=== PATIENT | male | born 1980 | race Caucasian/White ===

== ENCOUNTER → 2021-03-23 14:40 | Outpatient (BNVA) | payer BC, SELFPAY | PROVIDERS: PCP Physician Assistant; Visit Provider Internal Medicine | DX: Z01.810 Encounter for preprocedural cardiovascular examination (principal); I48.0 Paroxysmal atrial fibrillation; I10 Essential (primary) hypertension; G47.33 Obstructive sleep apnea (adult) (pediatric); Z51.81 Encounter for therapeutic drug level monitoring; Z79.899 Other long term (current) drug therapy; Z99.89 Dependence on other enabling machines and devices | CPT/HCPCS: 93005 ==

== ENCOUNTER → 2021-11-10 12:57 | Outpatient (BNVA) | payer BC, SELFPAY | PROVIDERS: PCP Internal Medicine; Visit Provider Physician Assistant ==

== ENCOUNTER → 2021-11-11 07:34 | Outpatient (BNVA) | payer BC, SELFPAY | PROVIDERS: PCP Internal Medicine; Visit Provider Surgery ==

== ENCOUNTER 2021-11-16 15:39 | Outpatient (REF) | payer BC, SELFPAY ==
--- NOTE | ~2021-11-16 | XR_ITS ---
EXAMINATION: XR CHEST CLINICAL INFORMATION: Paroxysmal atrial fibrillation COMPARISON: Previous chest x-ray most recent May 2019 TECHNIQUE: 2 views of the chest were obtained. FINDINGS: No significant abnormality is noted involving the heart, lungs, mediastinum, bony thorax or soft tissues. XR/XR chest 2V IMPRESSION: Unremarkable examination.
[2021-11-18 13:00] LABS: H Pylori Breath Test Negative (Negative)
== END 2021-11-16 15:40 | disposition home or self-care (01) ==
LOC: HO.XRAY 15:39
PROVIDERS: Absent Provider Surgery; PCP Internal Medicine; Visit Provider Physician Assistant Surgical
DX: E66.01 Morbid (severe) obesity due to excess calories (principal); E78.5 Hyperlipidemia, unspecified; G47.33 Obstructive sleep apnea (adult) (pediatric); I10 Essential (primary) hypertension; I48.0 Paroxysmal atrial fibrillation; Z99.89 Dependence on other enabling machines and devices
CPT/HCPCS: 36415; 71046; 83013

== ENCOUNTER → 2021-12-07 08:17 | Outpatient (BNVA) | payer BC, SELFPAY | PROVIDERS: PCP Internal Medicine; Visit Provider Surgery ==

== ENCOUNTER → 2021-12-14 08:33 | Outpatient (BNVA) | payer BC, SELFPAY | PROVIDERS: PCP Internal Medicine; Visit Provider Dietitian, Registered | DX: E66.01 Morbid (severe) obesity due to excess calories (principal) | CPT/HCPCS: 97802 ==

== ENCOUNTER 2021-12-22 08:21 | Outpatient (REF) | payer BC, SELFPAY ==
--- NOTE | ~2021-12-22 | US_ITS ---
EXAMINATION: US COMPLETE ABDOMEN WITH LIVER ELASTOGRAPHY CLINICAL INFORMATION: Paroxysmal atrial fibrillation. COMPARISON: None. TECHNIQUE: Real-time imaging of the abdominal viscera. Noninvasive ultrasound liver fibrosis assessment is performed using Dorina ElastPQ point quantification shear wave elastography (2D-SWE) with a C5-2 MHz transducer. Multiple elastography samples are obtained. FINDINGS: PANCREAS: The visualized pancreatic head and body are normal in appearance. The remainder of the pancreas is obscured from visualization by the overlying bowel gas. ABDOMINAL AORTA: The proximal, middle, and distal aortic segments are normal in caliber. INFERIOR VENA CAVA: Visualized portions are normal. LIVER: Normal. The liver demonstrates normal size, contour and echogenicity. No focal lesion or intrahepatic biliary duct dilatation. The right lobe measures 18.0 cm in length. The left lobe measures 10.4 cm in length. Portal flow is hepatopedal. Shear wave liver elastography median stiffness is 1.97 m/s (reference: normal median stiffness is 1.3 m/s or less). IQR/median stiffness to assess sampling precision is 0.19 (reference: good quality data set is IQR/median stiffness of 0.15 or less). GALLBLADDER: Normal. The gallbladder is physiologically distended without evidence of stones, sludge, polyps, wall thickening or pericholecystic fluid. COMMON BILE DUCT: Normal in caliber measuring 0.5 cm in diameter. RIGHT KIDNEY: Normal. No hydronephrosis. No renal calculi or focal parenchymal lesions. The kidney measures 12.3 cm in maximum dimension. LEFT KIDNEY: Normal. No hydronephrosis. No renal calculi or focal parenchymal lesions. The kidney measures 12.0 cm in maximum dimension. SPLEEN: Normal. The spleen measures 13.5 cm in maximum dimension. FREE FLUID: None. US/US abdomen comp w elastography IMPRESSION: 1. Mild hepatomegaly. 2. Borderline size spleen. 3. Rest of the abdominal ultrasound is unremarkable. 4. Liver elastography: Median liver stiffness 1.97 m/s corresponding to cACLD, (suggestive). REFERENCE: Society of Radiologists in Ultrasound Liver Stiffness Thresholds (2019): LIVER STIFFNESS THRESHOLDS: *Liver Stiffness equal or less than 1.3 m/s: High probability of being normal. *Liver Stiffness less than 1.7 m/s: In the absence of other known clinical signs, rules out compensated advanced chronic liver disease. *Liver Stiffness 1.7-2.1 m/s: Suggestive of compensated advanced chronic liver disease but need further test for confirmation. *Liver Stiffness over 2.1 m/s: Rules in compensated advanced chronic liver disease. *Liver Stiffness over 2.4 m/s: Suggestive of clinically significant portal hypertension. QUALITY OF DATA SET: *IQR/Median value equal or less than 0.15 implies a quality data set. *IQR/Median value over 0.15 implies a poor quality data set. SIGNIFICANT CHANGE FROM PRIOR EXAM: Significant change if liver stiffness measurement is 10% or greater from prior exam. OTHER CONSIDERATIONS: The stage of liver fibrosis may be overestimated in the setting of acute hepatitis, liver inflammation, elevated liver function tests, hepatic vascular congestion, obstructive cholestasis, non-fasting state, and infiltrative diseases such as amyloidosis and lymphoma. In some patients with NAFLD, the liver stiffness thresholds for compensated advanced chronic liver disease may be lower. In causes other than viral hepatitis and NAFLD, liver stiffness thresholds are not well established.
--- NOTE | ~2021-12-22 | FL_ITS ---
EXAMINATION: XR FLUOROSCOPY UPPER GI WITH AIR CLINICAL INFORMATION: Preoperative COMPARISON: None TECHNIQUE: Air-contrast upper GI examination FINDINGS: There is normal apposition of the focal cords while saying E. There is normal elevation of the soft palate while saying candy. Patient swallowed thin and thick barium and half-inch diameter barium tablet without difficulty. No persistent strictures identified. There is normal motility seen. No hiatal hernia. No gastroesophageal reflux was elicited including with water siphon test. No mucosal abnormality appreciated. The stomach demonstrated normal distensibility without abnormal mass or ulceration. There was no delay in gastric emptying. The duodenal bulb and sweep appeared unremarkable. FLUOROSCOPY TIME: 1.4 minutes DOSE AREA PRODUCT: 20.474 Gy-cm2 (john-centimeter squared) FL/FL upper GI w air IMPRESSION: Normal air-contrast upper GI examination.
== END 2021-12-22 08:22 | disposition home or self-care (01) ==
LOC: HO.US 08:21
PROVIDERS: Visit Provider Surgery
DX: Z01.818 Encounter for other preprocedural examination (principal); I48.0 Paroxysmal atrial fibrillation; I10 Essential (primary) hypertension; E66.01 Morbid (severe) obesity due to excess calories; E78.5 Hyperlipidemia, unspecified; G47.33 Obstructive sleep apnea (adult) (pediatric); Z99.89 Dependence on other enabling machines and devices
CPT/HCPCS: 74246; 76705; 76981

== ENCOUNTER 2021-12-29 08:00 | Outpatient (REF) | payer BC, SELFPAY ==
--- NOTE | 2021-12-29 08:41 | ECG_ITS ---
Test Reason : I48.0 Blood Pressure : / mmHG Vent. Rate : 064 BPM Atrial Rate : 064 BPM P-R Int : 166 ms QRS Dur : 104 ms QT Int : 392 ms P-R-T Axes : 072 056 029 degrees QTc Int : 404 ms Normal sinus rhythm Normal ECG When compared with ECG of 16-SEP-2018 09:32, No significant change was found Referred By: Jose G Melgar Electronically Signed By:RACHEAL MUNOZ
[2021-12-29 09:34] LABS: Basophils Percent Auto 0.4 % (0-2); Eosinophils Absolute Auto 0.3 X10*3/uL (0.0-0.4); Eosinophils Percent Auto 3.7 % (0-4); Hematocrit 45.2 % (42.0-52.0); Imm Gran Abs Auto 0.02 X10*3/uL (0.00-0.03); Imm Gran Pct Auto 0.3 % (0.0-0.4); Lymphocytes Absolute Auto 1.6 X10*3/uL (1.2-4.9); Lymphocytes Percent Auto 22.4 % (20-40); MANUAL DIFF FLAG SCAN; Mean Corpuscular HGB Conc 33.2 g/dl (31.0-36.0); Mean Corpuscular Hemoglobin 27.5 pg (27.0-33.0); Mean Corpuscular Volume 82.9 fL (80.0-98.0); Monocytes Absolute Auto 0.4 X10*3/uL (0.1-1.2); Monocytes Percent Auto 5.8 % (2-11); Neutrophils Absolute Auto 4.7 x10*3/uL (2.0-8.3); Neutrophils Percent Auto 67.4 % (45-73); PLT CLUMP 1; Red Blood Count 5.45 X10*6/uL (4.60-5.80); Red Cell Distribution Width 12.7 % (11.0-16.0); SCAN SMEAR FLAG 1
[2021-12-29 09:56] LABS: Alanine Aminotransferase 18 U/L (0-40); Albumin Level 4.4 g/dL (3.5-5.0); Alkaline Phosphatase 82 U/L (39-117); Anion Gap 11 (12-20); Aspartate Amino Transferase 21 U/L (5-37); Bilirubin Total 0.5 mg/dL (0.0-1.0); Blood Urea Nitrogen 14 mg/dL (9-16); C Reactive Protein 0.48 mg/dL (< or = 0.50); Calcium 9.6 mg/dL (8.4-10.2); Carbon Dioxide 28 mmol/L (22-29); Chloride 105 mmol/L (96-108); Cholesterol 219 mg/dL; Estimated Glomerular Filt Rate > 60; Glucose Random 99 mg/dL (60-115); HDL Cholesterol 39 mg/dL; Iron 60 mcg/dL (45-160); LDL Cholesterol Calculated 156 mg/dl; Platelet Count 155 X10*3/uL (160-400); Potassium 4.4 mmol/L (3.3-5.1); Sodium 140 mmol/L (135-145); Total Protein 7.1 g/dL (6.5-8.0); Triglycerides 120 mg/dL
[2021-12-29 09:57] LABS: SLIDE REVIEW VERIFIED
[2021-12-29 10:04] LABS: Estimated Average Glucose 108 mg/dL; Hemoglobin A1c % 5.4 %
[2021-12-29 10:08] LABS: Percent Iron Saturation 15 % (15-50); Total Iron Binding Capacity 393 mcg/dL (228-428); Unsaturated Iron Binding 333 ug/dL
[2021-12-29 10:20] LABS: Ferritin 107 ng/mL (20-250); Insulin 26 uU/mL (2-29); TSH reflex Free T4 2.07 uIU/mL (0.32-4.0); Vitamin D 25-OH Total 25.5 ng/mL (>30)
[2021-12-29 10:27] LABS: Folate 13.3 ng/mL (> or = 4.0); Vitamin B12 506 pg/mL (200-900)
[2021-12-30 17:16] LABS: Calcium (PTHI) 9.5 mg/dL (8.6-10.3); PTHI 27 pg/mL (14-64)
[2022-01-02 14:42] LABS: Zinc 77 mcg/dL (60-130)
[2022-01-03 17:21] LABS: Vitamin B1 7 nmol/L (8-30)
[2022-01-04 17:26] LABS: Vitamin A 41 mcg/dL (38-98)
== END 2021-12-29 08:01 | disposition home or self-care (01) ==
LOC: HO.LAB 08:00
PROVIDERS: PCP Internal Medicine; Visit Provider Surgery
DX: E66.01 Morbid (severe) obesity due to excess calories (principal); G47.33 Obstructive sleep apnea (adult) (pediatric); E78.5 Hyperlipidemia, unspecified; I10 Essential (primary) hypertension; I48.0 Paroxysmal atrial fibrillation; Z99.89 Dependence on other enabling machines and devices
CPT/HCPCS: 36415; 80053; 80061; 82306; 82607; 82728; 82746; 83036; 83525; 83540; 83970; 84425; 84443; 84590; 84630; 85025; 86140; 93005

== ENCOUNTER → 2022-01-11 08:18 | Outpatient (BNVA) | payer BC, SELFPAY | PROVIDERS: PCP Internal Medicine; Visit Provider Surgery ==

== ENCOUNTER → 2022-02-08 08:17 | Outpatient (BNVA) | payer BC, SELFPAY | PROVIDERS: PCP Internal Medicine; Visit Provider Surgery | DX: Z13.89 Encounter for screening for other disorder (principal) ==

== ENCOUNTER 2022-02-16 07:53 | Outpatient (REF) | payer BC, SELFPAY | END 2022-02-16 07:54 | disposition home or self-care (01) | LOC: HO.LAB 07:53 | PROVIDERS: PCP Internal Medicine; Visit Provider Surgery | DX: Z13.89 Encounter for screening for other disorder (principal) ==

== ENCOUNTER 2022-02-23 06:45 | Inpatient (IN) | payer BC, SELFPAY ==
[2022-02-15 10:01] VITALS: BMI 39.4
[2022-02-16 09:30] LABS: MANUAL DIFF FLAG NO
[2022-02-16 10:18] LABS: Hematocrit 44.4 % (42.0-52.0); Hemoglobin 14.8 g/dl (14.0-18.0); Imm Gran Pct Auto 0.3 % (0.0-0.4); Mean Corpuscular HGB Conc 33.3 g/dl (31.0-36.0); Mean Corpuscular Hemoglobin 27.2 pg (27.0-33.0); Mean Corpuscular Volume 81.6 fL (80.0-98.0); Mean Platelet Volume 10.3 fL (9.4-12.4); Neutrophils Percent Auto 67.7 % (45-73); Platelet Count 272 X10*3/uL (160-400); Red Blood Count 5.44 X10*6/uL (4.60-5.80); Red Cell Distribution Width 12.9 % (11.0-16.0); White Blood Count 7.9 X10*3/uL (4.8-10.8)
[2022-02-16 10:19] LABS: Basophils Percent Auto 0.5 % (0-2); Eosinophils Absolute Auto 0.2 X10*3/uL (0.0-0.4); Eosinophils Percent Auto 2.4 % (0-4); Imm Gran Abs Auto 0.02 X10*3/uL (0.00-0.03); Lymphocytes Absolute Auto 1.9 X10*3/uL (1.2-4.9); Lymphocytes Percent Auto 23.4 % (20-40); Monocytes Absolute Auto 0.5 X10*3/uL (0.1-1.2); Monocytes Percent Auto 5.7 % (2-11); Neutrophils Absolute Auto 5.4 x10*3/uL (2.0-8.3)
[2022-02-16 10:22] LABS: INTERNATIONAL NORM RATIO 1.1 (0.9-1.1); Prothrombin Time 12.7 SEC (9.9-13.0)
[2022-02-16 10:28] LABS: Estimated Average Glucose 100 mg/dL; Hemoglobin A1c % 5.1 %
[2022-02-16 10:40] LABS: Alanine Aminotransferase 24 U/L (0-40); Albumin Level 4.7 g/dL (3.5-5.0); Alkaline Phosphatase 106 U/L (39-117); Anion Gap 14 (12-20); Aspartate Amino Transferase 23 U/L (5-37); Blood Urea Nitrogen 14 mg/dL (9-16); C Reactive Protein 0.75 mg/dL (< or = 0.50); Calcium 10.1 mg/dL (8.4-10.2); Carbon Dioxide 27 mmol/L (22-29); Chloride 103 mmol/L (96-108); Cholesterol 229 mg/dL; Creatinine Clr Calc Pharmacy 122.9; Estimated Glomerular Filt Rate > 60; Glucose Random 84 mg/dL (60-115); HDL Cholesterol 37 mg/dL; LDL Cholesterol Calculated 168 mg/dl; Potassium 4.2 mmol/L (3.3-5.1); Sodium 140 mmol/L (135-145); Total Protein 7.7 g/dL (6.5-8.0); Triglycerides 122 mg/dL
[2022-02-16 10:47] LABS: Bilirubin Total 0.6 mg/dL (0.0-1.0)
[2022-02-16 11:05] LABS: Insulin 14 uU/mL (2-29); TSH reflex Free T4 1.78 uIU/mL (0.32-4.0)
[2022-02-22 12:28] LABS: COVID-19 Test Negative (Negative); IDNOW Serial# 16C4AD1C
[2022-02-23] VITALS (23 sets, daily range): BP systolic 130–190; BP diastolic 78–119; PULSE 74–85; RESP 14–18; TEMP 36.1–37.3; O2SAT 94–100
[2022-02-23] MEDS: Lactated Ringers 1,000 ML 999 ML IV (06:47)
--- NOTE | 2022-02-23 07:24 | P.CONAN_ITS ---
[facility] Active Problems Active Problems: All Active Problems (Updated 02/15/22 @ 09:55 by Patricia Bridges RN) PAF (paroxysmal atrial fibrillation) (Acute) Encounter for monitoring flecainide therapy (Acute) Preoperative cardiovascular examination (Acute) Vitamin D deficiency (Acute) Vitamin B1 deficiency (Acute) Hyperlipidemia (Acute) Morbid obesity (Acute) LINCOLN on CPAP (Acute) Essential hypertension (Acute) Afib (Acute) Past Medical History Medical History Afib Asthma Essential hypertension History of cardioversion Hyperlipidemia Morbid obesity On beta silvia at home LINCOLN on CPAP Family History Family History Father Heart attack Diabetes Mother Foot drop Anxiety Depression Sister Obesity Sister Obesity Sister Depression Anxiety Sister Anxiety Depression Surgical History Surgical History History of back surgery History of reconstruction of anterior cruciate ligament tear History of Problems with Anesthesia: No Social History Social History Are you a primary foster care therapist to a significant other at home: No Do you presently have visiting nurse or other home services: No Alcohol intake: current Alcohol intake frequency: a few times a week Patient Tobacco Use Status: Never used Tobacco Use of substances other than those prescribed or required for medical reasons: No Have you been hit, kicked, punched, or otherwise hurt by someone within the past year? If so, by whom?: No Are you DNR?: No Advance Directives: No Advance Directives Information Provided: Yes (Mailed with Pre-op Instructions) Advance Directives on File: No Recently lost weight without trying: No How much weight loss: 24-33 pounds Eating poorly because of decreased appetite: No Nutrition screen score: 3 Nutrition Risks: No Nutritional Risk Poor oral hygiene: No (Bonded front tooth) Meds Allergies Allergy/AdvReac Type Severity Reaction Status Date / Time No Known Allergies Allergy Unknown N/A Verified 02/15/22 09:58 [NO KNOWN ALLERGIES] Active Medications: Current Medications Lactated Ringer's (Lr) 1,000 mls @ 999 mls/hr IV .Q1H1M ZEINA Stop: 02/23/22 07:45 Last Admin: 02/23/22 06:47 Dose: 999 mls/hr Documented by: Home Medications Medication Instructions Recorded Confirmed Last Taken Type albuterol sulfate 90 mcg/actuation INHALATION 03/23/21 02/08/22 Unknown History aerosol inhaler hydrochlorothiazide 25 mg tablet 25 mg PO DAILY 03/23/21 02/15/22 Unknown History lisinopril 5 mg tablet 5 mg PO DAILY 03/23/21 02/15/22 Unknown History Exam Exam Date and Time: February 23, 2022 0724 Height,Weight and Vital Signs: Height 6 ft 3 in Weight 143.335 kg Last Vital Signs Temp 98.2 F 02/23/22 06:21 Pulse 80 02/23/22 06:21 Resp 18 02/23/22 06:21 BP 130/90 H 02/23/22 06:21 Pulse Ox 97 02/23/22 06:21 Pertinent Lab Results Pertinent Lab Results: Laboratory Tests 02/16/22 02/16/22 02/16/22 09:22 09:28 09:28 WBC 7.9 RBC 5.44 Hgb 14.8 Hct 44.4 MCV 81.6 MCH 27.2 MCHC 33.3 RDW 12.9 Plt Count 272 D MPV 10.3 Immature Gran % (Auto) 0.3 Neut % (Auto) 67.7 Lymph % (Auto) 23.4 [place] % (Auto) 5.7 Eos % (Auto) 2.4 Baso % (Auto) 0.5 Lymph # (Auto) 1.9 [place] # (Auto) 0.5 Eos # (Auto) 0.2 Baso # (Auto) 0.0 Abs Immat Gran (auto) 0.02 Absolute Neuts (auto) 5.4 Absolute Nucleated RBC 0.000 Nucleated RBC % (auto) 0.0 PT 12.7 INR 1.1 APTT 40.0 H Sodium Potassium Chloride Carbon Dioxide Anion Gap BUN Creatinine Estim Creat Clear Calc Estimated GFR Random Glucose Estimat Average Glucose Hemoglobin A1c % Insulin Level Calcium Total Bilirubin AST ALT Alkaline Phosphatase C-Reactive Protein Total Protein Albumin Triglycerides Cholesterol LDL Cholesterol, Calc HDL Cholesterol TSH COVID-19 ([facility]) COVID-19 Clin Com Blood Type O Negative Antibody Screen NEGATIVE 02/16/22 02/16/22 02/22/22 09:28 09:28 12:05 WBC RBC Hgb Hct MCV MCH MCHC RDW Plt Count MPV Immature Gran % (Auto) Neut % (Auto) Lymph % (Auto) [place] % (Auto) Eos % (Auto) Baso % (Auto) Lymph # (Auto) [place] # (Auto) Eos # (Auto) Baso # (Auto) Abs Immat Gran (auto) Absolute Neuts (auto) Absolute Nucleated RBC Nucleated RBC % (auto) PT INR APTT Sodium 140 Potassium 4.2 Chloride 103 Carbon Dioxide 27 Anion Gap 14 BUN 14 Creatinine 1.22 Estim Creat Clear Calc 122.9 Estimated GFR > 60 Random Glucose 84 Estimat Average Glucose 100 Hemoglobin A1c % 5.1 Insulin Level 14 Calcium 10.1 Total Bilirubin 0.6 AST 23 ALT 24 Alkaline Phosphatase 106 D C-Reactive Protein 0.75 H Total Protein 7.7 Albumin 4.7 Triglycerides 122 Cholesterol 229 LDL Cholesterol, Calc 168 HDL Cholesterol 37 TSH 1.78 COVID-19 ([facility]) Negative COVID-19 Clin Com See Note Blood Type Antibody Screen Airway Mallampati Class: III TM Dist: >3cm Neck ROM: Full Loose/Missing/Broken Teeth: No Heart: RRR Lungs: CTA Assessment and Plan Assessment Anesthesia Assessment: Anesthesia Plan Discussed and Chart Reviewed Final Anesthetic Review History of Problems with Anesthesia: No NPO: Yes ASA Class: III Final Preanesthetic Review: Meds/Allgs Chart Reviewed, Consent Obtained/Reviewed and Anes Risks/Benef Reviewed Patient Risk: Intermediate Procedure Risk: Intermediate Anesthetic Plan Anesthetic Plan: GA Disposition: Standard PACU
--- NOTE | 2022-02-23 07:53 | PHA.MEDREC ---
Pharmacy Consult ? Medication Reconciliation RN has completed the medication reconciliation, pharmacy reviewed.
[2022-02-23] MEDS: HYDROmorphone HCl 0.5 MG/0.5 ML SYRINGE 0.25 MG IVPUSH ×4 (10:26→10:58)
--- NOTE | 2022-02-23 10:28 | PM.DS ---
DS: Providers Provider Date of Service: 02/24/22 Date of admission: 02/23/22 06:45 Primary care physician: Matt Bhagat DO, MD DS: Summary Hospital Course Hospital Course: ADMITTING DIAGNOSIS: morbid obesity, pAFIB, HTN, LINCOLN, hyperlipidemia DISCHARGE DIAGNOSIS: same, s/p laparoscopic sleeve gastrectomy PAST SURGICAL HISTORY: PROCEDURE: upper endoscopy, laparoscopic sleeve gastrectomy DISCHARGE SUMMARY: History of Present Illness: The patient is a 41 year-old woman with a BMI of 44 kg/m2 and associated co-morbidities as described above. The patient had extensive work-up,lost 37.8 lbs preoperatively and was electively scheduled for laparoscopic, possible open sleeve gastrectomy and gastropexy. Risks and complications of the surgery were discussed with the patient in advance, particularly the possibility of , pulmonary embolism, anastomotic leak, bleeding, bowel injury, GERD, cardiac, renal or pulmonary complications. The patient understood all the risks and was in agreement with the surgical plan. Hospital Course: The patient underwent an uneventful laparoscopic sleeve gastrectomy with gastropexy on the day of admission. Postoperatively, the patient was transferred to the surgical floor. The patient received IV Acetaminophen and IV dilaudid for pain control. Patient was started on bariatric phase 1 diet POD #0. On postoperative day one, the patient was feeling well without nausea, vomiting, fevers, or tachycardia. The patient had some mild incisional pain and the abdomen was soft. On the morning of postoperative day one, the patient was continued on 1 ounce of water or ice every half hour. During the day, the patient did fairly well, having some incisional pain, but able to ambulate adequately and to tolerate liquids well. Since the patient is doing well, we decided that the patient was ready to be discharged. The patient was given instructions to follow-up with me next week and to call my office for any fever over 101, persistent abdominal pain, nausea, vomiting, GERD, symptoms of DVT such as calf tenderness, or leg swelling, or pulmonary embolism such as chest pain or shortness of breath. The patient was also instructed to drink 40-60 ounces of liquids per day using the 1-ounce cups. The patient had been given prescriptions for Tylenol for pain, Zofran prn for nausea, and pantoprazole and carafate previously. The patient was encouraged to ambulate and use the incentive spirometer. The patient was allowed to shower, but no baths, and encouraged to stay active at home. All of these instructions were given to the patient personally. All questions were answered and the patient understood all instructions, the instructions were also given to the patient in print. Time Spent with Patient Time attestation: Total time spent providing and/or coordinating discharge services: Discharge coordination time: Less than 30 minutes Quality: Safe Use of Opioids Does Pt have an Active Cancer Diagnosis on the Problem List?: No Quality: Stroke Does the patient have a stroke diagnosis?: No Physical Exam Vital Signs: Vital Signs: Last Vital Signs Temp 98.2 F 02/23/22 06:21 Pulse 80 02/23/22 06:21 Resp 18 02/23/22 10:26 BP 130/90 H 02/23/22 06:21 Pulse Ox 97 02/23/22 06:21 BMI result Body Mass Index 39.4 DS: Data Data Completed and Pending Pending studies at discharge: Pending at discharge 02/23/22 09:31 Surgical [PTH] Routine Labs on day of discharge: Laboratory Results - last 24 hr 02/22/22 12:05 COVID-19 ([facility]) Negative COVID-19 Clin Com See Note Discharge Plan Discharge Anticipated Discharge Date/Time: 02/24/22 10:25 Patient Disposition: Home, Self-Care Discharge Diagnosis: s/p sleeve gastrectomy Referrals: Matt Bhagat DO, MD [Primary Care Provider] - 1 Week Discharge Medications: Continued metoprolol succinate 25 mg tablet extended release 24 hr 25 mg PO DAILY Qty: 30 3RF albuterol sulfate 90 mcg/actuation HFA aerosol inhaler 2 inh inhalation Q4H PRN (Reason: Shortness Of Breath) 0RF lisinopril 5 mg tablet 5 mg PO DAILY 0RF flecainide 100 mg tablet 100 mg PO Q12H 90 Days Qty: 180 3RF pantoprazole 40 mg tablet,delayed release (DR/EC) 40 mg PO DAILY Qty: 30 2RF sucralfate 100 mg/mL suspension 10 ml PO BID Qty: 400 2RF ondansetron HCl 4 mg tablet 4 mg PO Q12H Qty: 20 0RF Held hydrochlorothiazide 25 mg tablet 25 mg PO DAILY 0RF Hold Instructions: Discuss with Dr Melgar Discontinued cholecalciferol (vitamin D3) 125 mcg (5,000 unit) capsule 125 mcg PO DAILY Qty: 30 2RF thiamine HCl (vitamin B1) 100 mg tablet 100 mg PO DAILY Qty: 30 1RF polyethylene glycol 3350 [Miralax] 17 gram powder in packet 17 g PO DAILY Qty: 14 0RF Rx Instructions: Mix each packet with 8oz of water and do 7 packets on 02/21/22 and another 7 packets on 02/22/22 Discharge Orders: Discharge Order (Routine); Ordered 02/24/22 Ordered By: Jose G Melgar Diet: other Activity on Discharge: No heavy lifting Stand Alone Forms: Patient Portal Discharge page Care Plan Goals: weight loss Health Concerns: morbid obesity Plan of Treatment: No tub baths, sex or returning to work until discussed at first post op appointment. No exercise, alcohol, tobacco or illegal drug use. Continue to use incentive spirometer hourly while awake. Walk in home for 5- 10 minutes every 2 hours during the first week. Continue phase 1 diet today and start phase 2 diet tomorrow morning. Follow all instructions in the bariatric handbook and call with any questions. 1. Please call your doctor or come back to the emergency room should any new symptoms arise. 2. You will receive a courtesy call from [facility] 24-48 hours after discharge. 3. Activity: abstain from alcohol, practice limited stair climbing, no bending, no driving, no exercise, no illicit substances, no lifting, no sex, no tub bath, no work. 4. Diet: continue as discussed with Dr. Melgar. 5. Dressing Change/Wound Care: Do not change or remove surgical dressings unless they are wet or soiled. 6. Call your doctor if: - Your temperature exceeds 101.5 F - You experience excessive pain or swelling - You have an unexpected reaction to medication - You have excessive bleeding - You experience continued vomiting/nausea - Your incision begins to separate - Your incision shows signs of infection such as increased redness, swelling, excessive pain, heat, or drainage (light blood or clear fluid is normal) 7. General instructions: No lifting greater than 5 lbs for the next 4 weeks[address] driving within 24 hours of taking narcotic pain medications. If you do not move your bowels in the next 2 days, please take milk of magnesia over the counter. Please follow the post op diet and do not advance your diet until you are seen in the office in about 2 weeks. Please walk around your home every hour or two to prevent blood clots from forming in your legs. You do not need to wake from sleeping to walk. Please sleep in a bed or couch to prevent kinking at the hips and knees. Please take your incentive spirometer (your lung public affairs director) home with you and use it for the next few days to prevent pneumonias. You may shower, no hot tubs, baths or swimming pools. Please call the office with any questions or concerns such as increasing abdominal pain, fever, chills, shortness of breath, chest pain, leg pain or swelling, or redness or drainage from your incisions. Do not hesitate to contact the office with any questions at . The patient's medical history has been reviewed and they are considered low risk for post op DVT and therefore DVT prophylaxis is not considered necessary. Travel after surgery was reviewed. The patient has not disclosed any travel plans during the first 30 days after surgery and they have been advised that within the first 30 days after surgery any bus, plane, train or car travel over 2 hours in duration is contraindicated due to the possibility of developing blood clots from immobility. Any travel, needs to include periods of ambulation of 10 minutes in duration every 2 hours. The patient was instructed to discuss any plans for travel during this period with their bariatric surgeon. Assessment: stable, post op sleeve gastrectomy
[2022-02-23] MEDS: Metoclopramide HCl 10 MG/2 ML VIAL IVPUSH (10:35)
[2022-02-23] MEDS: Famotidine/PF 20 MG/2 ML VIAL IVPUSH ×2 (10:35→20:18)
[2022-02-23 11:32] LABS: Hematocrit 42.8 % (42.0-52.0); Hemoglobin 14.4 g/dl (14.0-18.0)
[2022-02-23] MEDS: ondansetron HCL 4 MG/2 ML VIAL IVPUSH ×2 (11:36→20:18)
[2022-02-23 11:41] LABS: Anion Gap 13 (12-20); Blood Urea Nitrogen 13 mg/dL (9-16); Calcium 9.5 mg/dL (8.4-10.2); Carbon Dioxide 26 mmol/L (22-29); Chloride 104 mmol/L (96-108); Creatinine Clr Calc Pharmacy 121.9; Estimated Glomerular Filt Rate > 60; Glucose Random 124 mg/dL (60-115); Potassium 4.9 mmol/L (3.3-5.1); Sodium 138 mmol/L (135-145)
--- NOTE | 2022-02-23 11:57 | PM.OP ---
Brief Operative Note Date of Service: 02/23/22 Procedure: INITIAL PATIENT BMI ON PRESENTATION AT OUR OFFICE: 44.1 kg/m2 LAST BMI BEFORE SURGERY:40 kg/2 COMORBIDITIES: sleep apnea on CPAP, hypertension, atrial fibrilation, asthma, hyperlipidemia, liver fibrosis ?The patient presented to the Weight Management Program with significant obesity that was negatively impacting the patient's comorbidities as listed above.? The program is a phased program with a special focus on preoperative medical weight management to promote substantial weight loss and prepare the patients for the second phase of the program: bariatric surgery. The patient participated in an intensive weekly lifestyle ?intervention and exercise program during which the patient ?has lost between the initial office visit and the last preoperative visit 40.6lbs, or 11.51% of initial actual body weight. It was deemed appropriate for the patient to now have bariatric surgery. In light of the current Covid-19 pandemic and the well documented strong association of obesity and increased risk of worse outcomes if infected with Covid-19 (REFERENCES:https://pubmed.ncbi.nlm.nih.gov/47934105/,?https://pubmed.ncbi.nlm.nih.gov/52297405/), any delay in undergoing bariatric surgery may lead to the patient's worsening health condition and increased?risk of more severe Covid-19 disease if infected. In addition a recent?study from [facility] published in [employer] on 10/31/2021 ([email or web address]:/[id number]) found that, among patients with obesity, substantial weight loss achieved with surgery was associated with improved outcomes of COVID-19 infection. The findings suggest that obesity can be a modifiable risk factor for the severity of COVID-19 infection. In addition, the patient met the BMI-criteria for bariatric surgery based on the BMI on initial presentation. The patient should not be penalized for achieving such weight loss because ?it is not sustainable long-term without surgical intervention and it was achieved in preparation for bariatric surgery ?under my direction and based on my published research ([email or web address]:/[email or web address]).pdf and?https://www.soard.org/article/[email or web address])05230-X/pdf) ?that a 10% preoperative weight loss improves long-term weight loss after surgery and reduces perioperative complications.? Insurance carriers such as [facility] have endorsed my recommendations ?and have included in their policies criteria to include a 10% preoperative weight loss requirement. PROCEDURE: Esophago-gastroscopy, laparoscopic lysis of adhesions, laparoscopic sleeve gastrectomy and laparoscopic gastropexy INDICATIONS: This is a 41 year-old male who was electively scheduled for laparoscopic, possibly open sleeve gastrectomy. The risks and complications of the procedure were discussed with the patient in advance, particularly the possibility of ; pulmonary embolism; staple line leak; bleeding; GERD; cardiac, pulmonary, or renal complications; as well as long-term problems such as insufficient weight loss, vitamin deficiency, strictures, or ulcers. The patient understood all the risks, and was in agreement to proceed with surgery. DESCRIPTION OF PROCEDURE: After informed consent was obtained from the patient, the patient was given preoperative antibiotics, and was transferred to the operating room. After successful induction of general anesthesia, pneumatic compression devices were placed on both lower extremities. An upper endoscopy was performed next. The oropharynx and esophagus appeared to be within normal limits. There was no diaphragmatic hernia present consistent with the findings of the preoperative upper GI. The stomach was entered. Then after all fluid and air were suctioned and the stomach was fully decompressed, the scope was withdrawn and secured in the mid esophagus. The patient was then prepped and draped in the usual sterile manner, and abdominal access was established at the right upper quadrant with the Samuel technique. A 12 mm blunt port was inserted, and the abdomen was insufflated with CO2 to a pressure of 15 mmHg. Under direct visualization, additional ports were placed, specifically two 5 mm Versi-step ports to the left upper quadrant, and a 5 mm Versi-Step port to the right upper quadrant. 1% lidocaine plain was used to infiltrate all port sites as well as all fascia defects. Using the EndoClose suture passer device, I placed a #1 Polysorb tie across the falciform ligament in order to retract it up against the abdominal wall and prevent injury of the ligament with our instruments during the procedure. Following that, the patient was placed in a steep reverse Trendelenburg position. An additional 5 mm port was placed to the right flank for the Mediflex retractor that was used to retract the left lobe of the liver. The gastro-esophageal fat pad was opened with the ultrasonic device (Thunderbeat, Olympus) and the anterior esophagus and hiatus were exposed. The angle of His was opened with the ultrasonic device the fundus of the stomach from any diaphragmatic and splenic attachments. I then opened the gastrocolic ligament between the transverse colon and the greater curvature of the stomach with the ultrasonic device to enter the lesser sac and facilitate the ligation of the short gastric vessels. I started at a mid-point along the greater curvature and using the Thunderbeat, all short gastric vessels were divided all the way to the angle of His until the left jania was completely dissected at its entirety. I then divided the gastro-colic ligament distally to a distance of about 3-4 cm proximal to the pylorus. There were extensive congenital adhesions between the pancreas and posterior gastric wall. Those were lysed completely with the ultrasonic device. Adhesiolysis took approximately 45 min to complete. The stomach was then divided transversely with one Endo KALA-45 purple, two KALA-45 orange loads and three KALA-60 articulating orange loads using the AEON stapler and loads. Every effort was made that the gastric sleeve had a tubular shape and an even caliber throughout. Once the sleeve resection was completed, the staple line of the gastric sleeve was reinforced with Hemoclips. The resected stomach was retrieved without difficulty from the Samuel port. A gastropexy was then performed in order to prevent postoperative GERD and partial gastric volvulus. Several interrupted 2.0 Surgidac sutures were placed between the sleeve's staple line and the previously divided greater omentum and gastro-colic ligament using the Endo-Stitch device. ?An upper endoscopy was performed. There was no narrowing at the GE junction. The scope was easily advanced all the way to the pylorus which was clearly visualized. There was no narrowing anywhere and the sleeve's caliber was even throughout. The sleeve's staple line was inspected and there was no evidence of ischemia, bleeding or dehiscence. At that point the gastroscope was withdrawn from the patient?s mouth while we were decompressing the bowel and the stomach from any remaining air. I looked into the lesser sac to see how the sleeve was situating and it was situating well. There was no bleeding from the staple line, spleen, or short gastric vessels. The Mediflex retractor was removed, and the undersurface of the liver was inspected and there was no bleeding. The patient was placed in supine position. I closed the fascial defect of the 12 mm port site with a figure of eight #1 Polysorb suture. Then 100 cc 0.25 % Marcaine plain with 10 mg of Dexamethasone were used to infiltrate the fascial closure as well as all skin incisions. At this point, the abdomen was deflated, all ports were removed under direct vision, and no bleeding was noted from any of the port sites. The skin incisions were irrigated with saline and were closed with 4-0 absorbable monofilament sutures. Steri-Strips and OpSites were used to cover all incisions. The patient was extubated and was transferred in stable condition to the recovery room for further care. I was present and performed all greer parts of the procedure. Ms. Rivera was the rn first assistant. There were no residents to assist with this case. Alessandro Melgar MD, PhD, FACS Surgeon: Jose G Melgar MD Anesthesia: GETA, local and other (TAP block) Was an Inside Trucker used for this Procedure?: No Inside Trucker: Anisha Rivera Estimated blood loss (mL): 10 IV fluids (mL): 3,000 Urine output (mL): 0 Pathology: other (Stomach) Condition: stable Disposition: PACU
--- NOTE | 2022-02-23 12:08 | PM.PNGS ---
Subjective Subjective Date of Service: 02/24/22 Interval history: Patient has mild incisional pain, but was able to ambulate and use the incentive spirometer. He is tolerating phase 1 bariatric diet Physical Exam Vital Signs: Vital Signs: Last Vital Signs Temp 99 F 02/23/22 11:50 Pulse 82 02/23/22 11:50 Resp 16 02/23/22 11:50 BP 167/94 H 02/23/22 11:50 Pulse Ox 98 02/23/22 11:50 BMI result Body Mass Index 39.4 GI: Inspection: Yes normal to inspection, Yes incision (clean, dry and intact) and Yes obesity Extrem: Right lower extremity: normal to inspection (no calf tenderness) Left lower extremity: normal to inspection (no calf tenderness) Objective Data Active Medications Albuterol Sulfate (Albuterol Sulfate (0.083%) 2.5 Mg/3 Ml Vial.Neb) 2.5 mg INHALE ONCE PRN PRN Reason: Wheezing Famotidine (Famotidine/Pf 20 Mg/2 Ml Vial) 20 mg IVPUSH BID ZEINA Last Admin: 02/23/22 10:35 Dose: 20 mg Documented by: HO.WARM Fentanyl (Fentanyl Citrate/Pf 100 Mcg/2 Ml Vial) 50 mcg IVPUSH Q5M PRN; Protocol PRN Reason: Pain, Severe (Pain Scale 7-10) Fentanyl (Fentanyl Citrate/Pf 100 Mcg/2 Ml Vial) 25 mcg IVPUSH Q5M PRN; Protocol PRN Reason: Pain, Moderate (Pain Scale 4-6 Metoclopramide HCl (Metoclopramide Hcl 10 Mg/2 Ml Vial) 10 mg IVPUSH Q6H PRN PRN Reason: Nausea Last Admin: 02/23/22 10:35 Dose: 10 mg Documented by: HO.WARM Labs CBC & Chem 7: 02/24/22 05:39 02/24/22 05:39 Labs: Laboratory Results - last 24 hr 02/22/22 02/23/22 12:05 11:03 Anion Gap 13 Estim Creat Clear Calc 121.9 Estimated GFR > 60 Random Glucose 124 H D Calcium 9.5 COVID-19 (TRAY) Negative COVID-19 Clin Com See Note Procedures Date of Service Date of Service: 02/24/22 Progress Note: A&P Assessment and plan (1) S/P laparoscopic sleeve gastrectomy: Status: Acute Assessment and Plan: s/p laparoscopic sleeve gastrectomy, lysis of adhesions repair of diaphragmatic hernia, and gastropexy Doing well Check am labs. If OK, will discharge home? (2) Morbid obesity: Status: Acute (3) LINCOLN on CPAP: Status: Acute (4) Hyperlipidemia: Status: Acute (5) Essential hypertension: Status: Acute (6) Afib: Status: Deleted (7) PAF (paroxysmal atrial fibrillation): Status: Acute (8) Congenital intra-abdominal adhesions: Status: Acute Fall Risk Details Current Medications: Current Medications Albuterol Sulfate (Albuterol Sulfate (0.083%) 2.5 Mg/3 Ml Vial.Neb) 2.5 mg INHALE ONCE PRN PRN Reason: Wheezing Famotidine (Famotidine/Pf 20 Mg/2 Ml Vial) 20 mg IVPUSH BID ZEINA Last Admin: 02/23/22 10:35 Dose: 20 mg Documented by: Fentanyl (Fentanyl Citrate/Pf 100 Mcg/2 Ml Vial) 50 mcg IVPUSH Q5M PRN; Protocol PRN Reason: Pain, Severe (Pain Scale 7-10) Fentanyl (Fentanyl Citrate/Pf 100 Mcg/2 Ml Vial) 25 mcg IVPUSH Q5M PRN; Protocol PRN Reason: Pain, Moderate (Pain Scale 4-6 Metoclopramide HCl (Metoclopramide Hcl 10 Mg/2 Ml Vial) 10 mg IVPUSH Q6H PRN PRN Reason: Nausea Last Admin: 02/23/22 10:35 Dose: 10 mg Documented by: Time Spent With Patient Time: Total time spent is greater than 50% in coordination of care (as documented) at patient's floor/unit and/or counseling patient: Quality Stroke Does the patient have a stroke diagnosis?: No VTE Prior VTE?: No VTE Risk Level:: Surgical - moderate VTE Device Contraindication: N/A - Device Ordered VTE Drug Contraindication: Treatment Not Indicated
[2022-02-23] MEDS: ceFAZolin Sodium/Dextrose,Iso 2 GM/50 ML PIGGYBACK IV (13:48)
[2022-02-23] MEDS: Metoprolol Succinate ER 25 MG TAB.ER.24H PO (13:49)
[2022-02-23] MEDS: Flecainide Acetate 50 MG TABLET 100 MG PO ×2 (13:51→20:18)
[2022-02-23] MEDS: lisinopriL 5 MG TABLET PO (15:40)
[2022-02-23] MEDS: 0.9 % Sodium Chloride Flush 3 ML SYRINGE IVFLUSH (20:19)
[2022-02-23] MEDS: Lactated Ringers 1,000 ML 100 ML IVCONT (20:33)
--- NOTE | 2022-02-23 22:13 | PC.NURSE ---
pt's middle abdominal dressing was saturated, reinforced with gauze and tegaderm.
[2022-02-24 03:27] VITALS: BP 138/67; PULSE 69; RESP 14; TEMP 36.7; O2SAT 95
[2022-02-24] MEDS: ondansetron HCL 4 MG/2 ML VIAL IVPUSH (05:43)
[2022-02-24] MEDS: Lactated Ringers 1,000 ML 100 ML IVCONT (05:43)
[2022-02-24 06:01] LABS: MANUAL DIFF FLAG NO
[2022-02-24 06:05] LABS: Basophils Percent Auto 0.1 % (0-2); Hemoglobin 13.6 g/dl (14.0-18.0); Imm Gran Abs Auto 0.06 X10*3/uL (0.00-0.03); Imm Gran Pct Auto 0.6 % (0.0-0.4); Lymphocytes Absolute Auto 1.2 X10*3/uL (1.2-4.9); Lymphocytes Percent Auto 11.4 % (20-40); Mean Corpuscular Hemoglobin 27.1 pg (27.0-33.0); Mean Corpuscular Volume 79.7 fL (80.0-98.0); Monocytes Absolute Auto 0.8 X10*3/uL (0.1-1.2); Monocytes Percent Auto 6.9 % (2-11); Neutrophils Absolute Auto 8.8 x10*3/uL (2.0-8.3); Platelet Count 244 X10*3/uL (160-400); Red Blood Count 5.02 X10*6/uL (4.60-5.80); Red Cell Distribution Width 12.9 % (11.0-16.0); White Blood Count 10.9 X10*3/uL (4.8-10.8)
[2022-02-24 06:38] LABS: Anion Gap 13 (12-20); Blood Urea Nitrogen 11 mg/dL (9-16); Calcium 9.3 mg/dL (8.4-10.2); Carbon Dioxide 24 mmol/L (22-29); Chloride 103 mmol/L (96-108); Estimated Glomerular Filt Rate > 60; Glucose Random 122 mg/dL (60-115); Sodium 136 mmol/L (135-145)
[2022-02-24 07:40] VITALS: O2SAT 98
[2022-02-24 08:00] VITALS: BP 152/89; PULSE 76; RESP 16; TEMP 36.1; O2SAT 97
[2022-02-24] MEDS: lisinopriL 5 MG TABLET PO (09:11)
[2022-02-24] MEDS: Flecainide Acetate 50 MG TABLET 100 MG PO (09:11)
[2022-02-24] MEDS: Famotidine/PF 20 MG/2 ML VIAL IVPUSH (09:11)
[2022-02-24] MEDS: Metoprolol Succinate ER 25 MG TAB.ER.24H PO (09:11)
--- NOTE | 2022-02-24 09:16 | MHC.CM.PN ---
PT REPORTS HE LIVES WITH HIS AND SON AND IS INDEPENDENT WITH CARE, WORKS AND DRIVES PT HAS A CPAP AND NO OTHER DME, HE HAS NO HOME SERVICES PT REPORTS HE AND HIS COMPLETED ADVANCED DIRECTIVES WITH AN CONSTRUCTION IRONWORKER WHEN HIS SON WAS BORN. COPY REQUESTED PCP: GARCÍA BLANCO PT REPORTS HE IS COVID-19 VACCINATED PT WILL DC HOME TODAY WITH NO SERVICES TO TRANSPORT
--- NOTE | 2022-02-24 11:10 | HO.POSTANES ---
Post Anesthesia Evaluation Post Anesthesia Evaluation Vital Signs: Vital Signs Temp Pulse Resp BP Pulse Ox 02/24/22 08:00 97.0 F 76 16 152/89 H 97 02/24/22 07:40 98 02/24/22 03:27 98.0 F 69 14 138/67 95 02/23/22 23:38 98.4 F 75 14 153/78 H 94 Anesthesia: General Endotracheal-GETA Mental Status: Awake Pain Control: Satisfactory Nausea/Vomiting: None Hydration: Adequate Anesthesia-Related Issues: No Anes. Related Issues
== END 2022-02-24 10:23 | disposition home or self-care (01) | DRG 403 ==
LOC: HO.SSSA 10:28 → HO.S3 12:35
PROVIDERS: Physician Assistant; Physician Assistant Surgical; Admitting Provider Surgery; PCP Internal Medicine; Visit Provider Surgery
PROC: 0DB64Z3 Excision of Stomach, Percutaneous Endoscopic Approach, Vertical (ICD-10-PCS; CPT 43845; principal; 2022-02-23 07:30)
DX: E66.01 Morbid (severe) obesity due to excess calories (principal); I48.91 Unspecified atrial fibrillation; K74.00 Hepatic fibrosis, unspecified; J45.909 Unspecified asthma, uncomplicated; K66.0 Peritoneal adhesions (postprocedural) (postinfection); E78.5 Hyperlipidemia, unspecified; I10 Essential (primary) hypertension; G47.33 Obstructive sleep apnea (adult) (pediatric); Z20.822 Contact with and (suspected) exposure to COVID-19; Z68.41 Body mass index [BMI] 40.0-44.9, adult; Z79.899 Other long term (current) drug therapy
CPT/HCPCS: 36415; 80048; 80053; 80061; 83036; 83525; 84443; 85014; 85018; 85025; 85610; 85730; 86140; 86850; 86900; 86901; 87635; 88307; 88342; 99024; A4649; C9399; J0131; J0690; J1100; J1170; J2250; J2405; J2550; J2765; J3010

== ENCOUNTER → 2022-02-28 14:03 | Outpatient (BNVA) | payer BC, SELFPAY | PROVIDERS: PCP Internal Medicine; Visit Provider Surgery | DX: Z13.89 Encounter for screening for other disorder (principal) ==

== ENCOUNTER → 2022-03-21 08:10 | Outpatient (BNVA) | payer BC, SELFPAY | PROVIDERS: PCP Internal Medicine; Visit Provider Dietitian, Registered | DX: E66.9 Obesity, unspecified (principal); Z68.36 Body mass index [BMI] 36.0-36.9, adult | CPT/HCPCS: 97803 ==

== ENCOUNTER → 2022-03-27 14:52 | Outpatient (BNVA) | payer BC, SELFPAY | PROVIDERS: PCP Internal Medicine; Visit Provider Internal Medicine | DX: I48.0 Paroxysmal atrial fibrillation (principal); I10 Essential (primary) hypertension; G47.33 Obstructive sleep apnea (adult) (pediatric); Z51.81 Encounter for therapeutic drug level monitoring; Z79.899 Other long term (current) drug therapy; Z99.89 Dependence on other enabling machines and devices | CPT/HCPCS: 93005 ==

== ENCOUNTER → 2022-04-04 11:53 | Outpatient (BNVA) | payer BC, SELFPAY | PROVIDERS: PCP Internal Medicine; Referring Provider Surgery; Visit Provider Dietitian, Registered | DX: E66.9 Obesity, unspecified (principal); Z68.35 Body mass index [BMI] 35.0-35.9, adult | CPT/HCPCS: 97803 ==

== ENCOUNTER → 2022-04-25 11:54 | Outpatient (BNVA) | payer BC, SELFPAY | PROVIDERS: PCP Internal Medicine; Referring Provider Surgery; Visit Provider Dietitian, Registered | DX: E66.9 Obesity, unspecified (principal); Z68.33 Body mass index [BMI] 33.0-33.9, adult | CPT/HCPCS: 97803 ==

== ENCOUNTER → 2022-05-25 16:06 | Outpatient (BNVA) | payer BC, SELFPAY | PROVIDERS: PCP Internal Medicine; Referring Provider Surgery; Visit Provider Dietitian, Registered | DX: E66.9 Obesity, unspecified (principal) | CPT/HCPCS: 97803 ==

== ENCOUNTER → 2022-06-28 16:00 | Outpatient (BNVA) | payer BC, SELFPAY | PROVIDERS: PCP Internal Medicine; Referring Provider Surgery; Visit Provider Dietitian, Registered | DX: E66.9 Obesity, unspecified (principal) | CPT/HCPCS: 97803 ==

== ENCOUNTER → 2022-07-26 16:19 | Outpatient (BNVA) | payer BC, SELFPAY | PROVIDERS: PCP Internal Medicine; Referring Provider Surgery; Visit Provider Dietitian, Registered | DX: E66.9 Obesity, unspecified (principal); Z68.31 Body mass index [BMI] 31.0-31.9, adult | CPT/HCPCS: 97803 ==

== ENCOUNTER 2022-08-12 07:09 | Outpatient (REF) | payer BC, SELFPAY ==
[2022-08-12 07:41] LABS: MANUAL DIFF FLAG NO
[2022-08-12 08:41] LABS: Basophils Percent Auto 0.6 % (0-2); Eosinophils Absolute Auto 0.3 X10*3/uL (0.0-0.4); Eosinophils Percent Auto 3.8 % (0-4); Hematocrit 44.2 % (42.0-52.0); Hemoglobin 14.7 g/dl (14.0-18.0); Imm Gran Abs Auto 0.02 X10*3/uL (0.00-0.03); Imm Gran Pct Auto 0.3 % (0.0-0.4); Lymphocytes Absolute Auto 1.9 X10*3/uL (1.2-4.9); Lymphocytes Percent Auto 29.4 % (20-40); Mean Corpuscular HGB Conc 33.3 g/dl (31.0-36.0); Mean Corpuscular Hemoglobin 27.9 pg (27.0-33.0); Mean Platelet Volume 10.8 fL (9.4-12.4); Monocytes Absolute Auto 0.4 X10*3/uL (0.1-1.2); Monocytes Percent Auto 6.4 % (2-11); Neutrophils Absolute Auto 3.9 x10*3/uL (2.0-8.3); Neutrophils Percent Auto 59.5 % (45-73); Platelet Count 230 X10*3/uL (160-400); Red Blood Count 5.26 X10*6/uL (4.60-5.80); Red Cell Distribution Width 12.8 % (11.0-16.0); White Blood Count 6.5 X10*3/uL (4.8-10.8)
[2022-08-12 09:19] LABS: Alanine Aminotransferase 18 U/L (0-40); Albumin Level 4.6 g/dL (3.5-5.0); Alkaline Phosphatase 107 U/L (39-117); Anion Gap 16 (12-20); Aspartate Amino Transferase 19 U/L (5-37); Bilirubin Total 0.7 mg/dL (0.0-1.0); Blood Urea Nitrogen 14 mg/dL (9-16); C Reactive Protein 0.08 mg/dL (< or = 0.50); Carbon Dioxide 26 mmol/L (22-29); Chloride 105 mmol/L (96-108); Cholesterol 175 mg/dL; Estimated Glomerular Filt Rate > 60; Glucose Random 92 mg/dL (60-115); HDL Cholesterol 53 mg/dL; Iron 131 mcg/dL (45-160); LDL Cholesterol Calculated 107 mg/dl; Percent Iron Saturation 32 % (15-50); Potassium 4.5 mmol/L (3.3-5.1); Sodium 142 mmol/L (135-145); Total Iron Binding Capacity 412 mcg/dL (228-428); Triglycerides 78 mg/dL; Unsaturated Iron Binding 281 ug/dL
[2022-08-12 09:20] LABS: Estimated Average Glucose 100 mg/dL; Hemoglobin A1c % 5.1 %
[2022-08-12 09:45] LABS: Ferritin 88 ng/mL (20-250); Insulin 7 uU/mL (2-29); TSH reflex Free T4 1.34 uIU/mL (0.32-4.0); Vitamin D 25-OH Total 44.4 ng/mL (>30)
[2022-08-12 09:48] LABS: Folate 10.8 ng/mL (> or = 4.0); Vitamin B12 683 pg/mL (200-900)
[2022-08-15 10:46] LABS: Calcium (PTHI) 9.9 mg/dL (8.6-10.3); PTHI 24 pg/mL (16-77)
[2022-08-16 13:02] LABS: Zinc 81 mcg/dL (60-130)
[2022-08-17 01:22] LABS: Vitamin A 49 mcg/dL (38-98)
[2022-08-17 14:07] LABS: Vitamin B1 18 nmol/L (8-30)
== END 2022-08-12 07:10 | disposition home or self-care (01) ==
LOC: HO.LAB 07:09
PROVIDERS: Visit Provider Physician Assistant Surgical
DX: Z98.84 Bariatric surgery status (principal)
CPT/HCPCS: 36415; 80053; 80061; 82306; 82607; 82728; 82746; 83036; 83525; 83540; 83970; 84425; 84443; 84590; 84630; 85025; 86140

== ENCOUNTER 2022-08-15 11:51 | Outpatient (REF) | payer BC, SELFPAY | END 2022-08-15 11:52 | disposition home or self-care (01) | LOC: HO.LAB 11:51 | PROVIDERS: Visit Provider Physician Assistant Surgical | DX: Z13.89 Encounter for screening for other disorder (principal) ==

== ENCOUNTER → 2022-10-02 15:02 | Outpatient (BNVA) | payer BC, SELFPAY | PROVIDERS: PCP Internal Medicine; Visit Provider Internal Medicine | DX: I48.0 Paroxysmal atrial fibrillation (principal); I10 Essential (primary) hypertension | CPT/HCPCS: 93005 ==

== ENCOUNTER → 2022-10-06 16:00 | Outpatient (BNVA) | payer BC, SELFPAY | PROVIDERS: PCP Internal Medicine; Visit Provider Dietitian, Registered | DX: E66.9 Obesity, unspecified (principal) | CPT/HCPCS: 97803 ==

== ENCOUNTER → 2022-11-24 16:17 | Outpatient (BNVA) | payer BC, SELFPAY | PROVIDERS: PCP Internal Medicine; Visit Provider Dietitian, Registered | DX: E66.9 Obesity, unspecified (principal) | CPT/HCPCS: 97803 ==

== ENCOUNTER → 2022-12-27 16:16 | Outpatient (BNVA) | payer BC, SELFPAY | PROVIDERS: PCP Internal Medicine; Visit Provider Dietitian, Registered | DX: E66.9 Obesity, unspecified (principal) | CPT/HCPCS: 97803 ==

== ENCOUNTER → 2023-03-22 14:48 | Outpatient (BNVA) | payer BC, SELFPAY | PROVIDERS: PCP Internal Medicine; Visit Provider Physician Assistant Surgical ==

== ENCOUNTER 2023-03-29 06:12 | Outpatient (REF) | payer BC, SELFPAY ==
[2023-03-29 11:12] LABS: MANUAL DIFF FLAG NO
[2023-03-29 11:37] LABS: Basophils Percent Auto 0.7 % (0-2); Eosinophils Absolute Auto 0.2 X10*3/uL (0.0-0.4); Hematocrit 44.3 % (42.0-52.0); Hemoglobin 15.1 g/dl (14.0-18.0); Imm Gran Abs Auto 0.01 X10*3/uL (0.00-0.03); Imm Gran Pct Auto 0.2 % (0.0-0.4); Lymphocytes Absolute Auto 1.8 X10*3/uL (1.2-4.9); Lymphocytes Percent Auto 32.2 % (20-40); Mean Corpuscular HGB Conc 34.1 g/dl (31.0-36.0); Mean Corpuscular Hemoglobin 29.2 pg (27.0-33.0); Mean Corpuscular Volume 85.7 fL (80.0-98.0); Mean Platelet Volume 10.4 fL (9.4-12.4); Monocytes Absolute Auto 0.3 X10*3/uL (0.1-1.2); Neutrophils Absolute Auto 3.3 x10*3/uL (2.0-8.3); Neutrophils Percent Auto 57.9 % (45-73); Platelet Count 205 X10*3/uL (160-400); Red Blood Count 5.17 X10*6/uL (4.60-5.80); Red Cell Distribution Width 12.4 % (11.0-16.0); White Blood Count 5.7 X10*3/uL (4.8-10.8)
[2023-03-29 11:39] LABS: Estimated Average Glucose 91 mg/dL; Hemoglobin A1c % 4.8 %
[2023-03-29 12:05] LABS: Alanine Aminotransferase 18 U/L (0-40); Albumin Level 4.4 g/dL (3.5-5.0); Alkaline Phosphatase 82 U/L (39-117); Anion Gap 10 (12-20); Aspartate Amino Transferase 20 U/L (5-37); Bilirubin Total 0.8 mg/dL (0.0-1.0); Blood Urea Nitrogen 16 mg/dL (9-16); C Reactive Protein < 0.10 mg/dL (< or = 0.50); Calcium 9.6 mg/dL (8.4-10.2); Carbon Dioxide 28 mmol/L (22-29); Chloride 108 mmol/L (96-108); Cholesterol 216 mg/dL; Estimated Glomerular Filt Rate > 60; Glucose Random 95 mg/dL (60-115); HDL Cholesterol 57 mg/dL; Iron 87 mcg/dL (45-160); LDL Cholesterol Calculated 143 mg/dl; Percent Iron Saturation 23 % (15-50); Potassium 4.1 mmol/L (3.3-5.1); Sodium 142 mmol/L (135-145); Total Iron Binding Capacity 374 mcg/dL (228-428); Triglycerides 81 mg/dL; Unsaturated Iron Binding 287 ug/dL
[2023-03-29 12:12] LABS: Ferritin 113 ng/mL (20-250); Folate 5.3 ng/mL (> or = 4.0); Insulin 10 uU/mL (2-29); TSH reflex Free T4 1.59 uIU/mL (0.32-4.0); Vitamin B12 887 pg/mL (200-900)
[2023-04-05 15:03] LABS: Vitamin B1 16 nmol/L (8-30)
[2023-04-06 02:38] LABS: Zinc 75 mcg/dL (60-130)
[2023-04-06 04:14] LABS: Vitamin A 60 mcg/dL (38-98)
== END 2023-03-29 06:13 | disposition home or self-care (01) ==
LOC: HO.HMGCLDS 06:12
PROVIDERS: PCP Internal Medicine; Visit Provider Physician Assistant Surgical
DX: K91.2 Postsurgical malabsorption, not elsewhere classified (principal); Z98.84 Bariatric surgery status; Z20.2 Contact with and (suspected) exposure to infections with a predominantly sexual mode of transmission
CPT/HCPCS: 36415; 80053; 80061; 82607; 82728; 82746; 83036; 83525; 83540; 83970; 84425; 84443; 84590; 84630; 85025; 86140

== ENCOUNTER 2023-06-11 15:32 | Outpatient (AMB) | payer BC, SELFPAY ==
[2023-06-11 15:46] VITALS: BP 130/80; PULSE 55; BMI 34.5
--- NOTE | 2023-06-11 15:46 | A.OFFVIS_ITS ---
Intake Vital Signs 06/11/23 15:46 Height 6 ft 2 in Weight 268 lb 15.423 oz BMI 34.5 BP 130/80 Blood Pressure Location Rt brachial Position Sitting Pulse 55 Intake Visit Reasons: OVERDUE FOLLOW UP W/ EKG FLECAINIDE. 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 HS PT HPI Details Yamil is a 42-year-old male with past medical history of morbid obesity who is status post bariatric surgery and down 100 lb, hypertension, hyperlipidemia, paroxysmal atrial fibrillation who presents for follow-up. Today he reports he has not felt any recurrent atrial fibrillation since his last visit 09/2022. He can clearly tell when he has AFib. No chest discomfort at rest or with activity. No shortness of breath, PND, orthopnea or edema. No dizziness, presyncope, syncope, falls. He is active throughout the day and works with the electrical system at [email or web address]. He has been taking his flecainide and metoprolol without reduction in dose or interruption. [facility] Medical History Asthma Encounter for monitoring flecainide therapy Essential hypertension History of cardioversion Hyperlipidemia Morbid obesity On beta silvia at home LINCOLN on CPAP Preoperative cardiovascular examination Vitamin D deficiency Surgical History History of back surgery History of reconstruction of anterior cruciate ligament tear S/P laparoscopic sleeve gastrectomy Family History Father Heart attack Diabetes Mother Foot drop Anxiety Depression Sister Obesity Sister Obesity Sister Depression Anxiety Sister Anxiety Depression Social History Are you a primary care program resident to a significant other at home: No Do you presently have visiting nurse or other home services: No Alcohol intake: current Alcohol intake frequency: a few times a week Patient Tobacco Use Status: Never used Tobacco service: No Current occupational status: employed Review of Systems Const All systems reviewed & are unremarkable except as noted in HPI and below ENT Denies dizziness Card Denies chest pain, Denies chest pain at rest, Denies chest pain with activity, Denies rapid heart rate, Denies pedal edema, Denies edema, Denies leg edema, Denies lightheadedness, Denies palpitations, Denies dyspnea, Denies dyspnea on exertion and Denies orthopnea Resp Denies cough, Denies dyspnea and Denies dyspnea on exertion GI Denies hematochezia and Denies change in stool character Musc Denies abnormal gait, Reports limited range of motion, Reports muscle cramps, Denies muscle weakness, Denies numbness, Denies radiating pain into limb, Denies stiffness and Denies tingling Neuro Denies abnormal gait, Denies dizziness, Denies numbness and Denies tingling Endo Denies palpitations Physical Exam Vital Signs: Last Vital Signs Pulse 55 06/11/23 15:46 BP 130/80 06/11/23 15:46 BMI result Body Mass Index 34.5 Const General: cooperative, healthy appearing, comfortable and no acute distress Orientation/consciousness: patient oriented x3 Neck Neck: Yes normal visual inspection Resp Effort & Inspection: normal respiratory effort Auscultation: clear to auscultation bilaterally, no crackles, no rales, no rhonchi and no wheezes Cardio Jugular venous distension: no JVD Rate: regular rate Rhythm: regular rhythm Heart sounds: S1 normal heart sound present, S2 normal heart sound present, no gallops, no murmurs and no rubs Neuro General: patient oriented x3 Extrem General: Yes normal to inspection Psych Appearance: grossly normal Mental Status: mental status grossly normal Speech and movement: Normal speech and movement present Office Procedures EKG Details: Today, read by me, sinus bradycardia, rate 55, QTC 382 milliseconds, no acute ST or T-wave abnormalities [id number], Complete Assessment & Plan Assessment & Plan (1) PAF (paroxysmal atrial fibrillation): Code(s): I48.0 - Paroxysmal atrial fibrillation Plan: History of paroxysmal atrial fibrillation with prior cardioversion and SHEILA cardioversion done in 2018 showed showing EF 55-60%. Episodes suppressed with the use of flecainide and metoprolol. Last year following bariatric surgery medication doses were reduced and he had an episode of short lived PAF. He has since been maintained on his usual doses of flecainide 100 mg q.12 hours and metoprolol XL 25 mg daily. He is low risk for stroke with chads Vasc 0 and not on anticoagulation. He denies any known recurrent AFib since his last visit September 2022. He reports feeling well overall. His weight has stabilized over the last year. Overall he is down 100 lb. At this time he will continue current management without change. He is considering ablation if he has any recurrent AFib. He will call this office if he wants to pursue ablation sooner. Cardiology office visit in 1 year, sooner if needed. (2) LINCOLN on CPAP: Code(s): G47.33 - Obstructive sleep apnea (adult) (pediatric); Z99.89 - Dependence on other enabling machines and devices (3) Morbid obesity: Code(s): E66.01 - Morbid (severe) obesity due to excess calories Plan: BMI currently 34.5. Weight reportedly down 100 lb since bariatric surgery. Coding Level of Care Code Est Pt Level 3 (09883) Diagnoses PAF (paroxysmal atrial fibrillation) I48.0 LINCOLN on CPAP G47.33; Z99.89 Morbid obesity E66.01 CPT Codes EKG - CPT: 18455-[id number], Complete ([id number]) Time Spent (min) 20 Comment Chart review, documentation, interview, assessment
== END 2023-06-11 16:08 | disposition home or self-care (01) ==
PROVIDERS: PCP Internal Medicine; Visit Provider Nurse Practitioner Family
DX: I48.0 Paroxysmal atrial fibrillation (principal); G47.33 Obstructive sleep apnea (adult) (pediatric); Z99.89 Dependence on other enabling machines and devices; E66.01 Morbid (severe) obesity due to excess calories
CPT/HCPCS: 93010; 99213

== ENCOUNTER → 2023-06-11 15:32 | Outpatient (BNVA) | payer BC, SELFPAY | PROVIDERS: PCP Internal Medicine; Visit Provider Nurse Practitioner Family | DX: I48.0 Paroxysmal atrial fibrillation (principal); I10 Essential (primary) hypertension; E66.01 Morbid (severe) obesity due to excess calories; E78.5 Hyperlipidemia, unspecified; G47.33 Obstructive sleep apnea (adult) (pediatric); Z68.34 Body mass index [BMI] 34.0-34.9, adult; Z98.890 Other specified postprocedural states; Z90.3 Acquired absence of stomach [part of]; Z99.89 Dependence on other enabling machines and devices | CPT/HCPCS: 93005 ==

== ENCOUNTER 2024-06-23 14:23 | Outpatient (AMB) | payer BC, SELFPAY ==
--- NOTE | 2024-06-23 14:27 | A.OFFVIS_ITS ---
Vital Signs 06/23/24 14:28 Height 6 ft 2 in Weight 291 lb 0.163 oz BMI 37.4 BP 142/90 H Blood Pressure Location Lt brachial Position Sitting Pulse 65 Intake Visit Reasons: 1 yr follow up Laboratory Worker Required: No Accompanied by: Self / Same As Patient Allergies No Known Allergies [NO KNOWN ALLERGIES] Allergy (Unknown, Verified 06/11/23 15:55) N/A Medication List - Last Reconciled 06/23/24 by Jaylen Jiang MD albuterol sulfate 90 mcg/actuation 2 inhalations inhalation Q4H PRN flecainide 100 mg PO Q12H 90 days metoprolol succinate ER 25 mg PO DAILY HPI Comments Details: Dre is here for follow-up regarding atrial fibrillation. Over the last few years, he has had about 4-5 episodes of atrial fibrillation or so. In 2018, he underwent SHEILA and cardioversion. Another cardioversion couple of years prior to that. He is maintained on a combination of flecainide and beta-blockers. He has morbid obesity and he underwent bariatric surgery and lost almost 100 lb in weight. However, it seems that he has again put him back some weight. His bariatric surgeon at asked him to cut back on beta-blockers but once he did that he went back into atrial fibrillation hence he is back on the usual dose. Over the last year, no atrial fibrillation occurrences. He states he feels good. [facility] Medical History On beta silvia at home Asthma Vitamin D deficiency Hyperlipidemia Morbid obesity History of cardioversion LINCOLN on CPAP Essential hypertension Preoperative cardiovascular examination Encounter for monitoring flecainide therapy Surgical History S/P laparoscopic sleeve gastrectomy History of back surgery History of reconstruction of anterior cruciate ligament tear Family History Father Heart attack Diabetes Mother Foot drop Anxiety Depression Sister Obesity Sister Obesity Sister Depression Anxiety Sister Anxiety Depression Social History Are you a primary summer child caregiver to a significant other at home: No Do you presently have visiting nurse or other home services: No Alcohol intake: current Alcohol intake frequency: a few times a week Patient Tobacco Use Status: Never used Tobacco service: No Current occupational status: employed Review of Systems Const All systems reviewed & are unremarkable except as noted in HPI and below Reports as per HPI and Reports no additional complaints Eyes Reports as per HPI and Denies no additional complaints ENT Denies no additional complaints and Reports as per HPI Card Reports as per HPI, Reports no additional complaints, Denies acrocyanosis, Denies chest pain, Denies leg edema, Denies lightheadedness, Denies palpitations and Denies dyspnea Resp Reports as per HPI, Denies no additional complaints and Denies dyspnea GI Reports as per HPI and Denies no additional complaints Reports no additional complaints and Reports as per HPI Musc Reports no additional complaints and Reports as per HPI Skin/Breast Reports system reviewed and no additional complaints, except as documented Neuro Reports no additional complaints and Reports as per HPI Psych Reports no additional complaints and Reports as per HPI Endo Reports no additional complaints, Reports as per HPI and Denies palpitations Baltazar/Lymph Reports no additional complaints and Reports as per HPI Aller/Immun Reports no additional complaints and Reports as per HPI Physical Exam Vital Signs: Last Vital Signs Pulse 65 06/23/24 14:28 BP 142/90 H 06/23/24 14:28 BMI result Body Mass Index 37.4 Const General: comfortable and no acute distress Orientation/consciousness: patient oriented x3 HEENT Other: Unremarkable Head: Yes normal to inspection Neck Neck: Yes normal visual inspection Chest Chest palpation & inspection: normal inspection of the chest Resp Auscultation: clear to auscultation bilaterally Cardio Palpation: normal PMI Heart sounds: S1 normal heart sound present, S2 normal heart sound present, no gallops, no murmurs and no rubs GI Palpation (GI): Soft to palpation Back/Spine/Pelvis Other: unremarkable Skin General skin exam: no rashes or lesions noted Neuro General: patient oriented x3 Extrem General: Yes normal to inspection Psych Mental Status: mental status grossly normal Office Procedures EKG Details: EKG with underlying sinus rhythm at 65/Min; no significant ST-T changes and otherwise unremarkable. [place] [id number], Complete Assessment & Plan Assessment & Plan (1) PAF (paroxysmal atrial fibrillation): Code(s): I48.0 - Paroxysmal atrial fibrillation Category: Medical Plan: Very stable on beta-blockers and flecainide. May continue for now. He is again gaining weight and hence there is an increased chance of recurrence. We discussed about this today. If he is able to indeed lose weight, then we can reassess cutting back on medications. Possibly, then stop flecainide and just use beta-blockers. Due to low thromboembolic risk, not on any anticoagulation. Of note, he did take Xarelto in the past but had rectal bleeding. Last echocardiogram from 2018 with normal left ventricular function and otherwise unremarkable. Unremarkable exercise stress echocardiogram from 2017. (2) Encounter for monitoring flecainide therapy: Code(s): Z51.81 - Encounter for therapeutic drug level monitoring; Z79.899 - Other manager terminal (current) drug therapy Category: Medical Plan: EKG is unremarkable. May continue. (3) Essential hypertension: Code(s): I10 - Essential (primary) hypertension Category: Medical Plan: He used to be on lisinopril/hydrochlorothiazide but not taking his anymore. Blood pressure did come down, but as he is gaining weight it is going up. To be followed. (4) LINCOLN on CPAP: Code(s): G47.33 - Obstructive sleep apnea (adult) (pediatric); Z99.89 - Dependence on other enabling machines and devices Category: Medical Plan: Continue CPAP. (5) Morbid obesity: Code(s): E66.01 - Morbid (severe) obesity due to excess calories Category: Medical Plan: Due to weight gain, advised to discuss with bariatric surgeon. Orders: Orders CA echo transthoracic complete 1 Year I48.0 - Paroxysmal atrial fibrillation ECG 3 day holter monitor 1 Year I48.0 - Paroxysmal atrial fibrillation Coding Level of Care Code Est Pt Level 4 (84374) Diagnoses PAF (paroxysmal atrial fibrillation) I48.0 Encounter for monitoring flecainide therapy Z51.81; Z79.899 Essential hypertension I10 LINCOLN on CPAP G47.33; Z99.89 Morbid obesity E66.01 CPT Codes EKG - CPT: 32229-[id number], Complete ([id number])
[2024-06-23 14:28] VITALS: BP 142/90; PULSE 65; BMI 37.4
== END 2024-06-23 14:48 | disposition home or self-care (01) ==
PROVIDERS: PCP Internal Medicine; Visit Provider Internal Medicine
DX: I48.0 Paroxysmal atrial fibrillation (principal); Z51.81 Encounter for therapeutic drug level monitoring; Z79.899 Other long term (current) drug therapy; I10 Essential (primary) hypertension; G47.33 Obstructive sleep apnea (adult) (pediatric); Z99.89 Dependence on other enabling machines and devices; E66.01 Morbid (severe) obesity due to excess calories
CPT/HCPCS: 93010; 99214

== ENCOUNTER → 2024-06-23 14:23 | Outpatient (BNVA) | payer BC, SELFPAY | PROVIDERS: PCP Internal Medicine; Visit Provider Internal Medicine | DX: I48.0 Paroxysmal atrial fibrillation (principal); I10 Essential (primary) hypertension; G47.33 Obstructive sleep apnea (adult) (pediatric); E66.01 Morbid (severe) obesity due to excess calories; Z68.37 Body mass index [BMI] 37.0-37.9, adult; Z79.899 Other long term (current) drug therapy; Z99.89 Dependence on other enabling machines and devices | CPT/HCPCS: 93005 ==

== ENCOUNTER 2024-07-15 13:27 | Outpatient (AMB) | payer BC, SELFPAY ==
--- NOTE | 2024-07-15 13:36 | A.OFFVIS_ITS ---
VS Expanded 07/15/24 13:39 Height 6 ft 2 in Weight 292 lb BMI 37.5 Intake Visit Reasons: (Telephone) PO LSG 02/23/22 Allergies No Known Allergies [NO KNOWN ALLERGIES] Allergy (Unknown, Verified 06/11/23 15:55) N/A Medication List - Last Reconciled 07/15/24 by NAKITA Montalvo albuterol sulfate 90 mcg/actuation 2 inhalations inhalation Q4H PRN flecainide 100 mg PO Q12H 90 days metoprolol succinate ER 25 mg PO DAILY HPI Comments Details: This?is a?43?yo male who is s/p LSG 02/23/2022. Presents for 2.5 year post op visit. Weight at last visit on 03/22/2023 was 256.6 pounds with a BMI of 32.9, w eight today is [] pounds, representing a [] pound weight loss with a BMI today of [].? No complaints of nausea, emesis, abdominal pain or reflux, or constipation. 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 Present meal plan includes: went back to normal eating with smaller portions previously- One 4in1 protein shakes each 4 scoops powder- sips on it during the day two?pure protein bars One meal :? 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 no other formal exercise PFSH Medical History On beta silvia at home Asthma Vitamin D deficiency Hyperlipidemia Morbid obesity History of cardioversion LINCOLN on CPAP Essential hypertension Preoperative cardiovascular examination Encounter for monitoring flecainide therapy Surgical History S/P laparoscopic sleeve gastrectomy History of back surgery History of reconstruction of anterior cruciate ligament tear Family History Father Heart attack Diabetes Mother Foot drop Anxiety Depression Sister Obesity Sister Obesity Sister Depression Anxiety Sister Anxiety Depression Social History Are you a primary animal care provider to a significant other at home: No Do you presently have visiting nurse or other home services: No Alcohol intake: current Alcohol intake frequency: a few times a week Patient Tobacco Use Status: Never used Tobacco service: No Current occupational status: employed Telehealth Telehealth Telehealth Platform: Telephone Location of provider rendering services: other Location of patient: address on file Patient Identification confirmed using: Name, : Yes Telehealth method: voice only Patient verbally consented to treatment: Yes Patient verbally consented to billing insurance company: Yes Patient informed of any privacy concerns related to visit: Yes Minutes spent on Phone/Video with Pt.: 15 Assessment & Plan Assessment & Plan (1) Obesity: Code(s): E66.9 - Obesity, unspecified Category: Medical (2) S/P laparoscopic sleeve gastrectomy: Comment: 02/23/22 Code(s): Z98.84 - Bariatric surgery status Category: Medical Plan Pt does not want a bar/shake based plan, we discussed that it would likely be the best option for best weight loss results but he prefers a food based plan. willing to do 1 shake Breakfast- Jocaomolk shake with Fairlife milk (22+13g) Lunch- 8 forks protein, 8 forks salad/veg Snack- [place] yogurt, can add berries Dinner- 8f/8f We discussed options to choose at [employer] where he often eats lunch at work, encouraged meal prepping, can sub a shake for lunch if he is on the go. Labs ordered. RTC 3 months. I spent a total of 30 minutes reviewing/updating records, examining the patient and counseling the patient on weight management as detailed above. Orders: Orders Insulin Today Z.84 - Bariatric surgery status Hemoglobin A1c Today Z.84 - Bariatric surgery status Vitamin B12 and Folate Today Z.84 - Bariatric surgery status Vitamin A Today Z.84 - Bariatric surgery status Vitamin D 25-OH Total Today Z.84 - Bariatric surgery status Complete Blood Count Auto Diff Today Z.84 - Bariatric surgery status Lipid Panel Today Z.84 - Bariatric surgery status IRON PROFILE Today Z84 - Bariatric surgery status Comprehensive Met. Panel Today .84 - Bariatric surgery status Zinc Today Z.84 - Bariatric surgery status C Reactive Protein Today Z98.84 - Bariatric surgery status Vitamin B1 Today Z.84 - Bariatric surgery status TSH reflex Free T4 Today Z98.84 - Bariatric surgery status Ferritin Today Z98.84 - Bariatric surgery status
[2024-07-15 13:39] VITALS: BMI 37.5
== END 2024-07-15 13:53 | disposition home or self-care (01) ==
LOC: HO.HBS 13:27
PROVIDERS: PCP Internal Medicine; Visit Provider Physician Assistant Surgical
DX: E66.9 Obesity, unspecified (principal); Z98.84 Bariatric surgery status
CPT/HCPCS: 99214

== ENCOUNTER → 2024-07-15 13:27 | Outpatient (BNVA) | payer BC, SELFPAY | PROVIDERS: PCP Internal Medicine; Visit Provider Physician Assistant Surgical ==

== ENCOUNTER 2024-10-08 07:27 | Outpatient (REF) | payer BC, SELFPAY ==
[2024-10-08 10:24] LABS: MANUAL DIFF FLAG NO
[2024-10-08 10:27] LABS: Basophils Percent Auto 0.6 % (0-2); Eosinophils Absolute Auto 0.2 X10*3/uL (0.0-0.4); Hematocrit 43.5 % (42.0-52.0); Hemoglobin 14.7 g/dl (14.0-18.0); Imm Gran Abs Auto 0.02 X10*3/uL (0.00-0.03); Imm Gran Pct Auto 0.3 % (0.0-0.4); Lymphocytes Percent Auto 30.3 % (20-40); Mean Corpuscular HGB Conc 33.8 g/dl (31.0-36.0); Mean Corpuscular Hemoglobin 28.7 pg (27.0-33.0); Mean Corpuscular Volume 84.8 fL (80.0-98.0); Mean Platelet Volume 10.3 fL (9.4-12.4); Monocytes Absolute Auto 0.4 X10*3/uL (0.1-1.2); Monocytes Percent Auto 5.8 % (2-11); Platelet Count 218 X10*3/uL (160-400); Red Blood Count 5.13 X10*6/uL (4.60-5.80); Red Cell Distribution Width 12.3 % (11.0-16.0); White Blood Count 6.6 X10*3/uL (4.8-10.8)
[2024-10-08 10:38] LABS: Estimated Average Glucose 103 mg/dL; Hemoglobin A1C 124.2814 umol/L; Hemoglobin A1c % 5.2 % (<6.0); Total Hemoglobin (HGBA1C) 3743.2005 umol/L
[2024-10-08 11:22] LABS: Alanine Aminotransferase 27 U/L (0-40); Albumin Level 4.4 g/dL (3.5-5.0); Alkaline Phosphatase 70 U/L (39-117); Anion Gap 10 (12-20); Aspartate Amino Transferase 30 U/L (5-37); Bilirubin Total 0.5 mg/dL (0.0-1.0); Blood Urea Nitrogen 12 mg/dL (9-16); C Reactive Protein < 0.10 mg/dL (< or = 0.50); Calcium 9.7 mg/dL (8.4-10.2); Carbon Dioxide 30 mmol/L (22-29); Chloride 106 mmol/L (96-108); Cholesterol 244 mg/dL (<200); Estimated Glomerular Filt Rate > 60; Ferritin 166 ng/mL (20-250); Glucose Random 94 mg/dL (60-115); HDL Cholesterol 55 mg/dL (>40); Iron 92 mcg/dL (45-160); LDL Cholesterol Calculated 167 mg/dL (<100); Percent Iron Saturation 25 % (15-50); Potassium 4.1 mmol/L (3.3-5.1); Sodium 142 mmol/L (135-145); TSH reflex Free T4 1.73 uIU/mL (0.32-4.0); Total Iron Binding Capacity 364 mcg/dL (228-428); Total Protein 7.2 g/dL (6.5-8.0); Triglycerides 112 mg/dL (<150); Unsaturated Iron Binding 272 ug/dL; Vitamin B12 681 pg/mL (200-900); Vitamin D 25-OH Total 51.6 ng/mL (>30)
[2024-10-08 11:49] LABS: Insulin 13 uU/mL (2-29)
[2024-10-11 21:23] LABS: Zinc 95 mcg/dL (60-130)
[2024-10-15 15:28] LABS: Vitamin B1 12 nmol/L (8-30)
[2024-10-15 19:53] LABS: Vitamin A 66 mcg/dL (38-98)
== END 2024-10-08 07:28 | disposition home or self-care (01) ==
LOC: HO.HMGCLDS 07:27
PROVIDERS: PCP Internal Medicine; Visit Provider Physician Assistant Surgical
DX: Z98.84 Bariatric surgery status (principal); Z13.1 Encounter for screening for diabetes mellitus
CPT/HCPCS: 36415; 80053; 80061; 82306; 82607; 82728; 82746; 83036; 83525; 83540; 84425; 84443; 84590; 84630; 85025; 86140

== ENCOUNTER 2024-10-13 09:56 | Outpatient (AMB) | payer BC, SELFPAY ==
--- NOTE | 2024-10-13 09:21 | A.OFFVIS_ITS ---
VS Expanded 10/13/24 09:47 Height 6 ft 2 in Weight 300 lb BMI 38.5 Intake Visit Reasons: TELEPHONE PO LSG 02/23/22 Allergies No Known Allergies [NO KNOWN ALLERGIES] Allergy (Unknown, Verified 06/11/23 15:55) N/A Medication List - Last Reconciled 10/13/24 by NAKITA Montalvo albuterol sulfate 90 mcg/actuation 2 inhalations inhalation Q4H PRN flecainide 100 mg PO Q12H 90 days metoprolol succinate ER 25 mg PO DAILY HPI Comments Details: This?is a?44?yo male who is s/p LSG 02/23/2022. Presents for 2 year 8 month month post op visit. Weight at last visit on 07/15/2024 was 292 pounds with a BMI of 37.5, weight today is 300 pounds, representing a 8 pound weight loss with a BMI today of [].? No complaints of nausea, emesis, abdominal pain or reflux, or constipation. Due to and birthday, was less strict with meal plan. 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 no other formal exercise PFSH Medical History On beta silvia at home Asthma Vitamin D deficiency Hyperlipidemia Morbid obesity History of cardioversion LINCOLN on CPAP Essential hypertension Preoperative cardiovascular examination Encounter for monitoring flecainide therapy Surgical History S/P laparoscopic sleeve gastrectomy History of back surgery History of reconstruction of anterior cruciate ligament tear Family History Father Heart attack Diabetes Mother Foot drop Anxiety Depression Sister Obesity Sister Obesity Sister Depression Anxiety Sister Anxiety Depression Social History Are you a primary hiv/aids care nurse to a significant other at home: No Do you presently have visiting nurse or other home services: No Alcohol intake: current Alcohol intake frequency: a few times a week Patient Tobacco Use Status: Never used Tobacco service: No Current occupational status: employed Telehealth Telehealth Telehealth Platform: Telephone Location of provider rendering services: practice address Location of patient: other Patient Identification confirmed using: Name, : Yes Telehealth method: voice only Patient verbally consented to treatment: Yes Patient verbally consented to billing insurance company: Yes Patient informed of any privacy concerns related to visit: Yes Minutes spent on Phone/Video with Pt.: 15 Assessment & Plan Assessment & Plan (1) S/P laparoscopic sleeve gastrectomy: Comment: 02/23/22 Code(s): Z98.84 - Bariatric surgery status Category: Surgical (2) Obesity: Code(s): E66.9 - Obesity, unspecified Category: Medical Plan Discussed strategies for getting through holidays. Pt feels that otherwise his meal plan was working well for him, providing adequate protein. We discussed controlling portion sizes of high fat/calorie foods like guacamole. Labs reviewed, vit A/B1 still pending. Cholesterol has been increasing, will monitor at next visit. RTC in February for annual. I spent a total of 30 minutes reviewing/updating records, examining the patient and counseling the patient on weight management as detailed above.
[2024-10-13 09:47] VITALS: BMI 38.5
== END 2024-10-13 10:00 | disposition home or self-care (01) ==
LOC: HO.HBS 09:56
PROVIDERS: PCP Internal Medicine; Visit Provider Physician Assistant Surgical
DX: E66.9 Obesity, unspecified (principal); E66.812 Obesity, class 2; Z68.38 Body mass index [BMI] 38.0-38.9, adult; Z98.84 Bariatric surgery status
CPT/HCPCS: 98967

== ENCOUNTER → 2024-10-13 09:56 | Outpatient (BNVA) | payer BC, SELFPAY | PROVIDERS: PCP Internal Medicine; Visit Provider Physician Assistant Surgical ==

== ENCOUNTER 2025-02-24 12:02 | Outpatient (AMB) | payer BC, SELFPAY ==
--- NOTE | 2025-02-24 11:39 | A.OFFVIS_ITS ---
VS Expanded 02/24/25 11:47 Height 6 ft 2 in Weight 306 lb BMI 39.3 Intake Visit Reasons: TELEPHONE PO LSG 02/23/22 Allergies No Known Allergies [NO KNOWN ALLERGIES] Allergy (Unknown, Verified 06/11/23 15:55) N/A Medication List - Last Reconciled 02/24/25 by NAKITA Montalvo albuterol sulfate 90 mcg/actuation 2 inhalations inhalation Q4H PRN flecainide 100 mg PO Q12H 90 days metoprolol succinate ER 25 mg PO DAILY HPI Comments Details: This?is a?44?yo male who is s/p LSG 02/23/2022. Presents for 3yr post op visit. Weight at last visit on 10/13/2024 was 300 pounds with a BMI of 38.5, weight tod ay is 306 pounds, representing a 6 pound weight gain with a BMI today of 38.5.? No complaints of nausea, emesis, abdominal pain or reflux, or constipation. He is not interested in starting GLP1 agonists. 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 has started weight lifting [facility] Medical History On beta silvia at home Asthma Vitamin D deficiency Hyperlipidemia Morbid obesity History of cardioversion LINCOLN on CPAP Essential hypertension Preoperative cardiovascular examination Encounter for monitoring flecainide therapy Surgical History S/P laparoscopic sleeve gastrectomy History of back surgery History of reconstruction of anterior cruciate ligament tear Family History Father Heart attack Diabetes Mother Foot drop Anxiety Depression Sister Obesity Sister Obesity Sister Depression Anxiety Sister Anxiety Depression Social History Are you a primary plant health care technician to a significant other at home: No Do you presently have visiting nurse or other home services: No Alcohol intake: current Alcohol intake frequency: a few times a week Patient Tobacco Use Status: Never used Tobacco service: No Current occupational status: employed Telehealth Telehealth Telehealth Platform: Telephone Location of provider rendering services: practice address Location of patient: other Patient Identification confirmed using: Name, : Yes Telehealth method: voice only Patient verbally consented to treatment: Yes Patient verbally consented to billing insurance company: Yes Patient informed of any privacy concerns related to visit: Yes Minutes spent on Phone/Video with Pt.: 16 Assessment & Plan Assessment & Plan (1) Obesity: Code(s): E66.9 - Obesity, unspecified Category: Medical (2) S/P laparoscopic sleeve gastrectomy: Comment: 02/23/22 Code(s): Z98.84 - Bariatric surgery status Category: Surgical Plan Pt plans to increase exercise with both walking and weight training. Will recheck cholesterol levels as they had been increasing at last visit. He is int erested in being seen at [place] for CPAP management, will let us know if he would like to pursue this. RTC 4mo. Orders: Orders Lipid Panel Today E78.5 - Hyperlipidemia, unspecified, Z98.84 - Bariatric surgery status
[2025-02-24 11:47] VITALS: BMI 39.3
--- OUTSIDE RECORDS SUMMARY | 2025-02-24 14:23 | XMS_ITS | Clinical Summary ---
Author Organization [employer] [facility] Address [address] [place] [address] Care Team Providers Care Air Cargo Ground Operations Supervisor Name Role Phone Matt Bhagat DO Primary Care Provider [phone] Social History Tobacco Use Types Packs/Day Years Used Date Smoking Tobacco: Never Assessed Sex and Gender Information Value Date Recorded Sex Assigned at Not on file Gender Identity Not on file Sexual Orientation Not on file Job Start Date Occupation Industry Not on file Not on file Not on file Plan of Treatment Health Maintenance Due Date Last Done Comments Hepatitis B Vaccines (1 of 3 - 3-dose series) 1981 Hepatitis C Screening 1981 COVID-19 Vaccine (#1) 04/12/1982 Depression Screening 1993 Preventative Health Evaluation 1999 DTap / Tdap / Td (1 - Tdap) 2000 Influenza Vaccine (#1) 2024 Pneumococcal Vaccine Aged Out No long er eligible based on patient's age to complete this topic RSV Ped < 20 months Aged Out No longe r eligible based on patient's age to complete this topic Care Teams Air Cargo Ground Operations Supervisor Relationship Specialty Start Date End Date Matt Bhagat DO [address] [place] [id number] PCP - General Internal Medicine 03/21/21
== END 2025-02-24 12:03 | disposition home or self-care (01) ==
LOC: HO.HBS 12:02
PROVIDERS: PCP Internal Medicine; Visit Provider Physician Assistant Surgical
DX: E66.9 Obesity, unspecified (principal); E66.812 Obesity, class 2; Z68.39 Body mass index [BMI] 39.0-39.9, adult; Z98.84 Bariatric surgery status
CPT/HCPCS: 98967

== ENCOUNTER → 2025-02-24 12:02 | Outpatient (BNVA) | payer BC, SELFPAY | PROVIDERS: PCP Internal Medicine; Visit Provider Physician Assistant Surgical | DX: E66.9 Obesity, unspecified (principal); E78.5 Hyperlipidemia, unspecified; G47.33 Obstructive sleep apnea (adult) (pediatric); Z98.84 Bariatric surgery status; Z99.89 Dependence on other enabling machines and devices; Z68.39 Body mass index [BMI] 39.0-39.9, adult | CPT/HCPCS: 98967 ==

== ENCOUNTER 2025-06-01 06:04 | Outpatient (REF) | payer BC, SELFPAY ==
--- OUTSIDE RECORDS SUMMARY | 2025-06-01 06:06 | XMS_ITS | Clinical Summary ---
Author Organization [facility] Address [address] [place] [address] Care Team Providers Care Marketing Lead Name Role Phone Matt Bhagat DO Primary Care Provider [phone] Social History Tobacco Use Types Packs/Day Years [...] (1 - Tdap) 2000 Influenza Vaccine (#1) 2025 Pneumococcal Vaccine Aged Out No long er eligible based on patient's age to complete this topic RSV Ped < 20 months Aged Out No longe r eligible based on patient's age to complete this topic Care Teams Marketing Lead Relationship Specialty Start Date End Date Matt Bhagat DO [address] [place] [id number] PCP - General Internal Medicine 03/21/21
[2025-06-01 10:37] LABS: Cholesterol 217 mg/dL (<200); HDL Cholesterol 46 mg/dL (>40); Triglycerides 94 mg/dL (<150)
== END 2025-06-01 06:05 | disposition home or self-care (01) ==
LOC: HO.HMGCLDS 06:04
PROVIDERS: PCP Internal Medicine; Visit Provider Physician Assistant Surgical
DX: E78.5 Hyperlipidemia, unspecified (principal); Z98.84 Bariatric surgery status
CPT/HCPCS: 36415; 80061

== ENCOUNTER → 2025-06-05 07:41 | Outpatient (REF) | payer BC, SELFPAY ==
--- NOTE | 2025-06-05 07:45 | CA_ITS ---
Transthoracic Echocardiogram Patient (Last, First, Middle): Dre Bains Paul Gender: Male Date of : 1980 Age: 44 Procedure Date: 06/05/2025 Procedure Type: Transthoracic Echocardiogram Location: OP Height: 190.5 cm Weight: 137.44 kg BSA: 2.62 m2 Heart Rate: bpm BP: 132 / 80 mmHg Airplane Fueler: Referring MD: Jaylen Jiang MD Statistical Programmer: Urbano Toro MD Symptoms: I48.0 - Paroxysmal atrial fibrillation Study Quality: Adequate ECG Rhythm: Sinus Conclusions: - 1. Normal LV ejection fraction of 65-70% with mild LVH 2. Normal cardiac valvular Dopplers 3. Normal RV systolic pressure 4. No gross pericardial effusion Findings Left Ventricle Normal left ventricular size and systolic function. There is mildly increased left ventricular wall thickness. The visually estimated ejection fraction is between 65-70%. Spectral Doppler is indicative of a normal filling pattern. Right Ventricle Normal right ventricular cavity size and systolic function. Atria The left atrium is likely dilated. There is no evidence of interatrial shunt. The right atrium is normal in size. Aortic Valve Normal aortic valve structure and function. There is no aortic valve stenosis. There is no aortic valve regurgitation. Mitral Valve Normal mitral valve structure and function. There is trace mitral valve regurgitation. There is no mitral valve stenosis. Pulmonic Valve The pulmonic valve is likely normal. There is trace pulmonic valve regurgitation. Tricuspid Valve Normal tricuspid valve structure. There is trace tricuspid valve regurgitation. The right ventricular systolic pressure is normal. The right ventricular systolic pressure is 14 mmHg. Normal right atrial pressure. There is no evidence of pulmonary hypertension. Great Vessels All visible segments of the aorta are normal in size. The pulmonary artery was not well visualized. There is no dilatation of the ascending aorta measuring 3.20 cm. Venous The inferior vena cava is normal in size and collapses greater than 50% with inspiration. Pericardium/Pleural There is no evidence of pericardial effusion. Prior Study Comparison No prior study available for comparison. Measurements 2D Linear Measurements IVSd: 1.25 0.6-0.9/0.6-1.0 cm LVIDd: 5.23 3.9-5.3/4.2-5.9 cm LVIDd Index: 2.00 2.4-3.2/2.2-3.1 cm/m2 LVIDs: 2.90 2.0-3.6 cm LVPWd: 1.24 0.7-1.1 cm Ao Root: 3.30 2.1-3.5 cm LA Diam: 3.70 2.7-3.8/3.0-4.0 cm LAIDs Index: 1.41 1.5-2.3 cm/m2 LV Mass: 329.73 67-162/88-224 g LV Mass Index: 125.85 43-95/49-115 g/m2 LVOT Diam: 2.50 3.0+(-)1.3 cm 2D Systolic Function EF 4C: 68.10 >55% EF 2C: 65.50 >55% EF BiP: 67.40 >55% Mitral Valve MV Pk E: 0.66 MV PK A: 0.51 MV Decel Time: 235.00 E/A: 1.30 E'Lateral: 15.00 E'Medial: 11.90 E/E' Med: 5.50 E/E' Lat: 4.40 PHT: 69.00 MVA PHT: 3.19 Decel [place]: 2.80 Aortic Valve AoV Pk [place]: 1.55 AoV Mn [place]: 0.93 AoV VTI: 0.32 AoV Pk Grad: 10.00 Aov Mn Grad: 4.00 DOUG Cont.VTI: 3.33 LVOT LVOT Pk [place]: 1.01 LVOT Mn [place]: 0.65 LVOT VTI: 0.22 LVOT Pk Grad: 4.00 LVOT Mn Grad: 2.00 LVOT Diam: 2.50 LVOT Area: 4.91 Diastolic Function MV Pk E: 0.66 MV Pk A: 0.51 E/A: 1.30 E'Medial: 11.90 E/E' Med: 5.50 E' Laterial: 15.00 E/E' Lat: 4.40 Right Ventricle TAPSE (mm): 27.00 TVS' [place]: 12.00 Tricuspid Valve TR Pk Yosi: 1.68 TR Pk Grad: 11.00 RA Press: 3.00 RVSP: 14.00 Great Vessels Aorta Ao Root-2D: 3.30 2.0-3.7 cm Ao Asc: 3.20 2.1-3.4 cm Pulmonary Valve PV Pk Yosi: 1.02 Peak PV Grad: 4.00 Updated in Other Vendor System with Status of Final Urbano Toro MD electronically signed on 06/05/2025 2:36:13 PM with status of Final
== END ==
LOC: HO.CARD 07:41
PROVIDERS: PCP Internal Medicine; Visit Provider Internal Medicine
DX: I48.0 Paroxysmal atrial fibrillation (principal)
CPT/HCPCS: 93306

== ENCOUNTER → 2025-06-05 07:45 | Outpatient (BNV) | payer BC, SELFPAY | PROVIDERS: PCP Internal Medicine; Visit Provider Internal Medicine Cardiovascular Disease | DX: I48.0 Paroxysmal atrial fibrillation (principal) | CPT/HCPCS: 93306 ==

== ENCOUNTER 2025-06-24 14:23 | Outpatient (AMB) | payer BC, SELFPAY ==
--- NOTE | 2025-06-24 14:26 | A.OFFVIS_ITS ---
VS Expanded 06/24/25 14:35 BP 161/89 H Blood Pressure Location Rt brachial Blood Pressure Position Sitting Pulse 71 Pulse Source Pulse Oximeter Temp 96.6 F L Temperature Source Temporal Artery Scan Pulse Oximetry 99 Oxygen Delivery Method Room Air Height 6 ft 2 in Weight 303 lb BMI 38.9 Body Fat % 35.4 Body Fat Mass 107.2 Fat Free Mass 195.8 Visceral Fat Rating 19.0 Body Water % 45.4 Body Water Mass 137.6 Muscle Mass/Score 186.2 Basal Metabolic Rate/Score 2,744 Intake Visit Reasons: OV PO LSG 02/23/22 Allergies No Known Allergies (NO KNOWN ALLERGIES) Allergy (Unknown, Verified 06/24/25 14:29) N/A Medication List - Last Reconciled 06/24/25 by NAKITA Montalvo albuterol sulfate 90 mcg/actuation 2 inhalations inhalation Q4H PRN flecainide 100 mg PO Q12H 90 days metoprolol succinate ER 25 mg PO DAILY HPI Comments Details: This?is a?44?yo M who is s/p LSG 02/23/2022. Weight loss of 3lb since last OV in February. No complaints of nausea, emesis, abdominal pain or reflux, or constipation. At last visit was not interested in starting GLP1 agonists. I got down to 299 before I went on vacation Previously had to get an echo, supposed to get a Holter monitor Meal plan: Breakfast- Jocaomolk shake with Fairlife milk (22+13g) Lunch- 8 forks protein, 8 forks salad/veg Snack- Tajik yogurt, can add berries Dinner- 8f/8f takes MVI has been using bars instead of shake may snack on apples during the day purchased [employer] products last time he was here Exercise routine includes: Does electrical and HVAC work, is very active and outside 50-70 hours tries to walk several times a week when picking kids up from school has started weight lifting Have you been diagnosed with reflux (GERD)? Score 0-5: 0=no symptoms, 1=noticeable but not bothersome (slight or occasional), 2=noticeable, bothersome but not daily, 3=bothersome and daily, 4=affects daily activities, 5=incapacitating, unable to do daily activities How bad is the heartburn: 0 Heartburn when lying down: 0 Heartburn when standing up: 0 Heartburn after meals: 0 Does heartburn change your diet: 0 Does heartburn wake you up from sleep: 0 Do you have difficulty swallowin Do you have pain with swallowin If you take medication for reflux, does this affect your daily life: 0 Total score: [] PFSH Medical History On beta silvia at home Asthma Vitamin D deficiency Hyperlipidemia Morbid obesity History of cardioversion LINCOLN on CPAP Essential hypertension Preoperative cardiovascular examination Encounter for monitoring flecainide therapy Surgical History S/P laparoscopic sleeve gastrectomy History of back surgery History of reconstruction of anterior cruciate ligament tear Family History Father Heart attack Diabetes Mother Foot drop Anxiety Depression Sister Obesity Sister Obesity Sister Depression Anxiety Sister Anxiety Depression Social History Are you a primary healthcare economics manager to a significant other at home: No Do you presently have visiting nurse or other home services: No Alcohol intake: current Alcohol intake frequency: holidays/special occasions only Patient Tobacco Use Status: Never used Tobacco service: No Current occupational status: employed Assessment & Plan Assessment & Plan (1) Obesity: Code(s): E66.9 - Obesity, unspecified Category: Medical (2) S/P laparoscopic sleeve gastrectomy: Comment: 02/23/22 Code(s): Z98.84 - Bariatric surgery status Category: Surgical Plan Pt requests pulm referral for CPAP equipment. Will place. Labs reviewed, cholesterol improved. We had a discussion about GLP1s, risks vs benefits. He is considering and will call office if he decides to pursue. RTC 6mo. Repeat labs at next visit. Orders: Referrals Pulmonology Referral E66.01 - Morbid (severe) obesity due to excess calories, G47.33 - Obstructive sleep apnea (adult) (pediatric), Z99.89 - Dependence on other enabling machines and devices
[2025-06-24 14:35] VITALS: BP 161/89; PULSE 71; TEMP 35.9; O2SAT 99; BMI 38.9
--- OUTSIDE RECORDS SUMMARY | 2025-06-24 15:22 | XMS_ITS | Clinical Summary ---
Author Organization [facility] Address [address] [place] [address] Care Team Providers Care Refinery Operator Visbreaking Name Role Phone Matt Bhagat DO Primary Care Provider [phone] Social History Tobacco Use Types Packs/Day Years [...] age to complete this topic Care Teams Refinery Operator Visbreaking Relationship Specialty Start Date End Date Matt Bhagat DO [address] [place] [id number] PCP - General Internal Medicine 03/21/21
== END 2025-06-24 15:12 | disposition home or self-care (01) ==
LOC: HO.HBS 14:24
PROVIDERS: PCP Internal Medicine; Visit Provider Physician Assistant Surgical
DX: E66.9 Obesity, unspecified (principal); Z68.38 Body mass index [BMI] 38.0-38.9, adult; Z90.3 Acquired absence of stomach [part of]; Z98.84 Bariatric surgery status
CPT/HCPCS: 99213

== ENCOUNTER 2025-07-16 15:00 | Outpatient (AMB) | payer BC, SELFPAY ==
[2025-07-16 15:19] VITALS: BP 114/80; PULSE 78; BMI 39.7
--- NOTE | 2025-07-16 15:19 | A.OFFVIS_ITS ---
Vital Signs 07/16/25 15:19 Height 6 ft 2 in Weight 309 lb 8.464 oz BMI 39.7 BP 114/80 Blood Pressure Location Lt brachial Pulse 78 Pulse Source Monitor Intake Visit Reasons: follow echo refill meds Accompanied by: Self / Same As Patient Allergies No Known Allergies (NO KNOWN ALLERGIES) Allergy (Unknown, Verified 07/16/25 15:21) N/A Medication List - Last Reconciled 07/16/25 by Rod Villegas NP albuterol sulfate 90 mcg/actuation 2 inhalations inhalation Q4H PRN flecainide 100 mg PO Q12H 90 days metoprolol succinate ER 25 mg PO DAILY HPI Comments Details: This is a 44-year-old male patient coming in for a follow-up visit. Patient with a history of hypertension, paroxysmal AFib, obesity, and sleep apnea. Patient on flecainide and metoprolol for AFib management. Patient has had bariatric surgery with an initial 100 lb weight lost but is now gaining it back. Patient is back to seeing weight management now and is working on weight loss again. Previously patient was ordered an echo and a Holter study. Patient never completed his Holter study and is otherwise reporting feeling well overall. Patient is denying any exertional chest pain, shortness of breath, palpitations, dizziness, orthopnea, PND, leg edema, presyncope or syncope. Patient is reporting compliance with all his medications. Patient does note that his CPAP machine needs to be changed and was referred to pulmonology but has not heard back yet from them. [facility] Medical History On beta silvia at home Asthma Vitamin D deficiency Hyperlipidemia Morbid obesity History of cardioversion LINCOLN on CPAP Essential hypertension Preoperative cardiovascular examination Encounter for monitoring flecainide therapy Surgical History S/P laparoscopic sleeve gastrectomy History of back surgery History of reconstruction of anterior cruciate ligament tear Family History Father Heart attack Diabetes Mother Foot drop Anxiety Depression Sister Obesity Sister Obesity Sister Depression Anxiety Sister Anxiety Depression Social History Are you a primary rn home care to a significant other at home: No Do you presently have visiting nurse or other home services: No Alcohol intake: current Alcohol intake frequency: holidays/special occasions only Patient Tobacco Use Status: Never used Tobacco service: No Current occupational status: employed Review of Systems Const Denies daytime sleepiness, Denies difficulty sleeping, Denies snoring, Denies stops breathing during sleep and Denies weakness Card Denies chest pain, Denies rapid heart rate, Denies irregular heart rhythm, Denies claudication, Denies leg edema, Denies lightheadedness, Denies palpitati ons, Denies dyspnea, Denies dyspnea on exertion, Denies orthopnea, Denies paroxysmal nocturnal dyspnea and Denies slow heart rate Resp Denies cough, Denies dyspnea, Denies dyspnea on exertion and Denies snoring GI Reports no additional complaints, Denies hematochezia, Denies change in stool character and Denies dyspepsia Musc Denies abnormal gait, Denies muscle weakness and Denies numbness Neuro Denies abnormal gait, Denies numbness and Denies weakness Endo Denies palpitations Physical Exam Vital Signs: Last Vital Signs Pulse 78 07/16/25 15:19 BP 114/80 07/16/25 15:19 BMI result Body Mass Index 39.7 Office Procedures EKG Details: EKG today showed normal sinus rhythm, rate 78 beats per minute, [place], [place]. [id number], Complete Assessment & Plan Assessment & Plan (1) PAF (paroxysmal atrial fibrillation): Code(s): I48.0 - Paroxysmal atrial fibrillation Category: Medical Plan: EKG today showed normal sinus rhythm. History of AFib who underwent SHEILA cardioversion and then another cardioversion and has been maintained on flecainide and metoprolol. Patient has been doing well on this strategy. Patient was previously on Xarelto but due to rectal bleeding, that was stopped. Low Myles Vasc and therefore not on anticoagulation at this time. No reported recurrence of AFib. Patient is planning on completing his Holter study and we will contact central line scheduling. (2) Encounter for monitoring flecainide therapy: Code(s): Z51.81 - Encounter for therapeutic drug level monitoring; Z79.899 - Other exterminator termite (current) drug therapy Category: Medical Plan: As above. (3) Essential hypertension: Code(s): I10 - Essential (primary) hypertension Category: Medical Plan: 06/05/2025-echo study showed a normal LV systolic function with the ejection fraction between 65-70% with mild LVH. Blood pressure today is stable. Continue current regimen. Advised monitoring blood pressures with a goal of blood pressure less than 130/80. Advised low- salt diet. (4) LINCOLN on CPAP: Code(s): G47.33 - Obstructive sleep apnea (adult) (pediatric); Z99.89 - Dependence on other enabling machines and devices Category: Medical Plan: Continue CPAP therapy. We will contact pulmonology for an appointment. (5) Obesity: Code(s): E66.9 - Obesity, unspecified Category: Medical Plan: Continue with weight loss management. If patient is able to lose weight, plan is to reassess cutting back on medications. Patient understanding of this plan. Advised heart healthy diet, regular exercise, weight loss, med compliance, and management of vascular risk factors. Follow up in 1 year, sooner if needed. In the interim, patient will call the office with any concerns or changes in symptoms. This note was generated using voice recognition software. While every effort has been made to ensure accuracy and proper underground repairer, there may be occasional errors that could affect the content or meaning of the described symptoms. Orders: Orders AMB EKG-In Office Today I48.0 - Paroxysmal atrial fibrillation Medications: Refilled flecainide 100 mg PO Q12H 180 tabs 3RF 90 days I48.91 - Unspecified atrial fibrillation Coding Level of Care Code Est Pt Level 4 (90855) Complex EM visit Add On G2211 Diagnoses PAF (paroxysmal atrial fibrillation) I48.0 Encounter for monitoring flecainide therapy Z51.81; Z79.899 Essential hypertension I10 LINCOLN on CPAP G47.33; Z99.89 Obesity E66.9 CPT Codes EKG - CPT: 57127-Hadnwlxwdbvichnct, Complete ([id number]) Time Spent (min) 31 Comment Time spent in reviewing the chart, test results, assessment, counseling and documentation.
--- OUTSIDE RECORDS SUMMARY | 2025-07-16 18:28 | XMS_ITS | Clinical Summary ---
Author Organization [facility] Address [address] [place] [address] Care Team Providers Care Restaurant Area Director Name Role Phone Matt Bhagat DO Primary Care Provider [phone] Social History Tobacco Use Types Packs/Day Years [...] age to complete this topic Care Teams Restaurant Area Director Relationship Specialty Start Date End Date Matt Bhagat DO [address] [place] [id number] PCP - General Internal Medicine 03/21/21
== END 2025-07-16 15:47 | disposition home or self-care (01) ==
LOC: HO.HCS 15:00
PROVIDERS: PCP Internal Medicine
DX: I48.0 Paroxysmal atrial fibrillation (principal); Z51.81 Encounter for therapeutic drug level monitoring; Z79.899 Other long term (current) drug therapy; I10 Essential (primary) hypertension; G47.33 Obstructive sleep apnea (adult) (pediatric); Z99.89 Dependence on other enabling machines and devices; E66.9 Obesity, unspecified
CPT/HCPCS: 93010; 99214

== ENCOUNTER → 2025-07-16 15:00 | Outpatient (BNVA) | payer BC, SELFPAY | PROVIDERS: PCP Internal Medicine | DX: I48.0 Paroxysmal atrial fibrillation (principal); I10 Essential (primary) hypertension; G47.33 Obstructive sleep apnea (adult) (pediatric); E66.9 Obesity, unspecified; Z51.81 Encounter for therapeutic drug level monitoring; Z99.89 Dependence on other enabling machines and devices; Z79.899 Other long term (current) drug therapy | CPT/HCPCS: 93005 ==